=== PATIENT | male | born 1960 | race Caucasian/White ===

== ENCOUNTER → 2016-09-11 | Outpatient (CLI) | payer BC ==
[~2016-09-11] MED LIST: NO HOME MEDICATIONS; PERCOCET 5/321 UDTAB PO
== END ==
LOC: COL.RAD 07:57
DX: R79.89 Other specified abnormal findings of blood chemistry (principal); R63.0 Anorexia; K76.0 Fatty (change of) liver, not elsewhere classified

== ENCOUNTER 2020-01-20 12:57 | Inpatient (IN) | payer BC ==
[2020-01-20] VITALS (115 sets, daily range): BP systolic 132–133; BP diastolic 83–88; PULSE 94–97; TEMP 98.1–98.2; O2SAT 73–98
[~2020-01-20] VITALS: Ht 177.8 cm; Wt 60.8 kg
[~2020-01-20 12:57] MED LIST changes: +FOLIC ACID 11 MG/TA1 PO; +K-DUR20 MEQ PO; +LIBRIUM 25M25 MG/CAP PO; +NICODERM C21 MG/PATC TD; +NORVASC 5MG5 MG/TAB PO; +THIAMINE 1100 MG/TAB PO
[2020-01-20 14:03] LABS: BASO % 0.2 % (0.0-2.0); GRAN % 80.4 % (42.2-75.2); HEMOGLOBIN 13.5 g/dl (13.5-18.0); LYMPH # 0.6 (1.2-3.4); LYMPH % 5.6 % (20.0-51.0); MEAN CELL VOLUME 95 fl (80.0-100.0); MEAN CORPUSCULAR HEMOGLOBIN 35 pg (27.0-31.0); MEAN CORPUSCULAR HGB CONC 37 g/dl (33.0-37.0); MEAN PLATELET VOLUME 11.7 fl (7.4-10.4); MONO # 1.5 (0.1-0.6); PLATELET COUNT 86 K/mm3 (130-400); RED BLOOD COUNT 3.87 M/mm3 (4.20-5.60); REDCELL DISTRIBUTION WIDTH-CV 11.6 % (11.5-14.5)
[2020-01-20 14:04] LABS: HEMATOCRIT 36.6 % (42.0-52.0)
[2020-01-20 14:12] LABS: ALBUMIN 4.4 gm/dL (3.5-5.0); BILIRUBIN,TOTAL 4.1 mg/dL (0.0-1.0); CALCIUM 9.1 mg/dL (8.4-10.2); CREATININE, serum 0.47 (0.66-1.25); MAGNESIUM 1.6 mg/dL (1.6-2.3); PARTIAL THROMBOPLASTIN TIME 33.5 SECONDS (26.0-37.0); POTASSIUM 3.2 mmol/L (3.4-5.0); PROTHROMBIN TIME 10.8 SECONDS (9.7-12.8); TOTAL PROTEIN 7.8 gm/dL (6.4-8.2)
[2020-01-20 15:32] LABS: COLLECTION METHOD CLEAN CATCH
[2020-01-20 15:40] LABS: PH 7 (5-8); SQUAMOUS EPITHELIAL 0-2 /hpf; URINE APPEARANCE Clear; URINE BACTERIA None Seen /hpf; URINE BILIRUBIN Negative (NEGATIVE); URINE BLOOD Negative (NEGATIVE); URINE COLOR Yellow; URINE GLUCOSE Negative (NEGATIVE); URINE KETONE Trace (NEGATIVE); URINE LEUKOCYTE ESTERASE Negative (NEGATIVE); URINE NITRATE Negative (NEGATIVE); URINE PROTEIN(semi-quant) Negative (NEGATIVE); URINE RBC 0-2 /hpf; URINE UROBILINOGEN >=4.0 mg/dL (NEGATIVE)
[2020-01-20 21:17] LABS: CALCIUM 8.3 mg/dL (8.4-10.2); CREATININE, serum 0.4 (0.66-1.25)
[2020-01-21] VITALS (427 sets, daily range): BP systolic 76–158; BP diastolic 60–115; PULSE 84–114; TEMP 97.3–98.2; O2SAT 61–100
[2020-01-21 06:51] LABS: BASO % 0.1 % (0.0-2.0); EOS # 0.1 (0.0-0.7); EOS % 0.9 % (0-4.0); GRAN # 4.7 (1.4-6.5); GRAN % 66.6 % (42.2-75.2); LYMPH % 14.9 % (20.0-51.0); MEAN CELL VOLUME 97 fl (80.0-100.0); MEAN CORPUSCULAR HGB CONC 36 g/dl (33.0-37.0); MEAN PLATELET VOLUME 11.9 fl (7.4-10.4); MONO # 1.2 (0.1-0.6); MONO % 17.2 % (1.7-9.3); PLATELET COUNT 79 K/mm3 (130-400); RED BLOOD COUNT 3.21 M/mm3 (4.20-5.60); REDCELL DISTRIBUTION WIDTH-CV 11.7 % (11.5-14.5)
[2020-01-21 06:57] LABS: HEMATOCRIT 31.2 % (42.0-52.0); HEMOGLOBIN 11.3 g/dl (13.5-18.0); MEAN CORPUSCULAR HEMOGLOBIN 35 pg (27.0-31.0)
[2020-01-21 07:01] LABS: ALBUMIN 3.1 gm/dL (3.5-5.0); BILIRUBIN,TOTAL 2.9 mg/dL (0.0-1.0); CALCIUM 8.1 mg/dL (8.4-10.2); CREATININE, serum 0.31 (0.66-1.25); MAGNESIUM 2.4 mg/dL (1.6-2.3); TOTAL PROTEIN 5.9 gm/dL (6.4-8.2)
[2020-01-21 07:08] LABS: POTASSIUM 2.9 mmol/L (3.4-5.0)
[2020-01-22] VITALS (490 sets, daily range): BP systolic 87–146; BP diastolic 65–96; PULSE 65–100; TEMP 98–99; O2SAT 56–100
[2020-01-22 06:25] LABS: HEMOGLOBIN 10.5 g/dl (13.5-18.0); MEAN CELL VOLUME 98 fl (80.0-100.0); MEAN CORPUSCULAR HEMOGLOBIN 35 pg (27.0-31.0); MEAN CORPUSCULAR HGB CONC 35 g/dl (33.0-37.0); PLATELET COUNT 102 K/mm3 (130-400); RED BLOOD COUNT 3.03 M/mm3 (4.20-5.60); REDCELL DISTRIBUTION WIDTH-CV 11.9 % (11.5-14.5)
[2020-01-22 06:29] LABS: HEMATOCRIT 29.8 % (42.0-52.0)
[2020-01-22 06:36] LABS: ALBUMIN 2.9 gm/dL (3.5-5.0); BILIRUBIN,TOTAL 2.2 mg/dL (0.0-1.0); CALCIUM 8.4 mg/dL (8.4-10.2); CREATININE, serum 0.25 (0.66-1.25); POTASSIUM 3.9 mmol/L (3.4-5.0); TOTAL PROTEIN 5.8 gm/dL (6.4-8.2)
[2020-01-23] VITALS (1123 sets, daily range): BP systolic 105–159; BP diastolic 69–98; PULSE 61–119; TEMP 96.4–98.4; O2SAT 66–100
[2020-01-23 07:26] LABS: BASO # 0.1 (0.0-0.2); BASO % 0.7 % (0.0-2.0); EOS # 0.2 (0.0-0.7); EOS % 2.4 % (0-4.0); GRAN # 4.4 (1.4-6.5); GRAN % 59.3 % (42.2-75.2); HEMOGLOBIN 11.5 g/dl (13.5-18.0); LYMPH # 1.5 (1.2-3.4); MEAN CELL VOLUME 102 fl (80.0-100.0); MEAN CORPUSCULAR HEMOGLOBIN 35 pg (27.0-31.0); MEAN CORPUSCULAR HGB CONC 34 g/dl (33.0-37.0); MEAN PLATELET VOLUME 10.9 fl (7.4-10.4); MONO # 1.3 (0.1-0.6); MONO % 17.2 % (1.7-9.3); PLATELET COUNT 131 K/mm3 (130-400); RED BLOOD COUNT 3.33 M/mm3 (4.20-5.60)
[2020-01-23 07:27] LABS: ALBUMIN 3.1 gm/dL (3.5-5.0); BILIRUBIN,TOTAL 2.1 mg/dL (0.0-1.0); CALCIUM 8.7 mg/dL (8.4-10.2); CREATININE, serum 0.34 (0.66-1.25); MAGNESIUM 1.8 mg/dL (1.6-2.3); POTASSIUM 3.7 mmol/L (3.4-5.0); TOTAL PROTEIN 6.3 gm/dL (6.4-8.2)
[2020-01-24] VITALS (456 sets, daily range): BP systolic 146–173; BP diastolic 90–110; PULSE 78–101; TEMP 97.6–98.2; O2SAT 86–100
[2020-01-24 06:17] LABS: HEMOGLOBIN 11.6 g/dl (13.5-18.0); MEAN CELL VOLUME 101 fl (80.0-100.0); MEAN CORPUSCULAR HEMOGLOBIN 35 pg (27.0-31.0); MEAN CORPUSCULAR HGB CONC 35 g/dl (33.0-37.0); MEAN PLATELET VOLUME 10.1 fl (7.4-10.4); PLATELET COUNT 151 K/mm3 (130-400); RED BLOOD COUNT 3.33 M/mm3 (4.20-5.60); REDCELL DISTRIBUTION WIDTH-CV 12.4 % (11.5-14.5)
[2020-01-24 06:30] LABS: HEMATOCRIT 33.5 % (42.0-52.0)
[2020-01-24 06:32] LABS: ALBUMIN 3.3 gm/dL (3.5-5.0); BILIRUBIN,TOTAL 1.8 mg/dL (0.0-1.0); CALCIUM 8.7 mg/dL (8.4-10.2); CREATININE, serum 0.32 (0.66-1.25); MAGNESIUM 1.6 mg/dL (1.6-2.3); POTASSIUM 3.8 mmol/L (3.4-5.0); TOTAL PROTEIN 6.5 gm/dL (6.4-8.2)
[2020-01-24 08:07] LABS: BAND 4 % (0-10); EOSINOPHIL 1 % (0-4); LYMPHOCYTE 27 % (20.0-51.0); NEUTROPHILS 47 % (42.0-75.2); PLATELET ESTIMATE NORMAL (NORMAL)
[2020-01-25] VITALS (13 sets, daily range): BP systolic 124–181; BP diastolic 79–104; PULSE 85–114; TEMP 96.9–98.5
[2020-01-25 06:24] LABS: CALCIUM 8.8 mg/dL (8.4-10.2); CREATININE, serum 0.32 (0.66-1.25); MAGNESIUM 1.6 mg/dL (1.6-2.3); POTASSIUM 3.9 mmol/L (3.4-5.0)
[2020-01-26] VITALS (8 sets, daily range): BP systolic 125–155; BP diastolic 83–99; PULSE 82–99; TEMP 97.6–98.6
[2020-01-26 07:13] LABS: BASO % 0.7 % (0.0-2.0); EOS # 0.2 (0.0-0.7); GRAN # 2.8 (1.4-6.5); GRAN % 45.5 % (42.2-75.2); HEMOGLOBIN 11.9 g/dl (13.5-18.0); LYMPH # 1.9 (1.2-3.4); MEAN CELL VOLUME 101 fl (80.0-100.0); MEAN CORPUSCULAR HEMOGLOBIN 35 pg (27.0-31.0); MEAN CORPUSCULAR HGB CONC 34 g/dl (33.0-37.0); MEAN PLATELET VOLUME 9.4 fl (7.4-10.4); MONO # 1.2 (0.1-0.6); MONO % 19.3 % (1.7-9.3); PLATELET COUNT 204 K/mm3 (130-400); RED BLOOD COUNT 3.44 M/mm3 (4.20-5.60); REDCELL DISTRIBUTION WIDTH-CV 12.1 % (11.5-14.5)
[2020-01-26 07:15] LABS: HEMATOCRIT 34.6 % (42.0-52.0)
[2020-01-26 07:21] LABS: ALBUMIN 3.1 gm/dL (3.5-5.0); BILIRUBIN,TOTAL 1.3 mg/dL (0.0-1.0); CALCIUM 8.6 mg/dL (8.4-10.2); CREATININE, serum 0.26 (0.66-1.25); POTASSIUM 3.7 mmol/L (3.4-5.0); TOTAL PROTEIN 6.3 gm/dL (6.4-8.2)
[2020-01-26] MEDS ORDERED: NICODERM C21 MG/PATC TD (15:49)
[2020-01-26] MEDS ORDERED: NICORETTE GUM2 MG BC (15:50)
[2020-01-26] MEDS ORDERED: ZOLOFT 50MG50 MG PO (15:51)
[2020-01-26] MEDS ORDERED: NORVASC 5MG5 MG/TAB PO (15:51)
[2020-01-26] MEDS ORDERED: MAG-OX 400400 MG/TAB PO (15:51)
[2020-01-26] MEDS ORDERED: MULTI VITAMINS1 TAB PO (15:52)
[2020-01-26] MEDS ORDERED: THIAMINE 1100 MG/TAB PO (15:52)
[2020-01-26] MEDS ORDERED: FOLIC ACID 11 MG/TA1 PO (15:52)
[2020-01-26] MEDS ORDERED: K-TAB20 PO (15:52)
[2020-01-26] MEDS ORDERED: TYLENOL 325MG325 MG PO (16:01)
== END 2020-01-26 18:10 | DRG 897 ==
LOC: COL.ER 12:57 → IMCU 15:28 → MEDICAL 15:28 → ICU 01-23 18:15 → MEDICAL 01-24 15:49
PROVIDERS: Emergency Medicine; Physician Assistant; Student in an Organized Health Care Education/Training Program; ADMIT Internal Medicine
DX: F10.239 Alcohol dependence with withdrawal, unspecified (principal); E87.1 Hypo-osmolality and hyponatremia; E87.2 Acidosis; R13.10 Dysphagia, unspecified; F32.9 Major depressive disorder, single episode, unspecified; E87.6 Hypokalemia; E83.42 Hypomagnesemia; K76.0 Fatty (change of) liver, not elsewhere classified; R53.81 Other malaise; R74.0 Nonspecific elevation of levels of transaminase and lactic acid dehydrogenase [LDH]; F17.200 Nicotine dependence, unspecified, uncomplicated; F17.210 Nicotine dependence, cigarettes, uncomplicated; Y90.0 Blood alcohol level of less than 20 mg/100 ml; M25.512 Pain in left shoulder; E86.0 Dehydration; D69.6 Thrombocytopenia, unspecified; W19.XXXA Unspecified fall, initial encounter
CPT/HCPCS: 99223-AI; 99232-AI; 99233-AI; 99239; J1650; J2060; J3411; J3475; J3480; J7030; Q9967

== ENCOUNTER 2020-01-26 15:53 | Inpatient (IN) | payer BC ==
[~2020-01-26] VITALS: Ht 177.8 cm; Wt 57.7 kg
[~2020-01-26 15:53] MED LIST changes: +K-TAB20 PO; +MAG-OX 400400 MG/TAB PO; +MULTI VITAMINS1 TAB PO; +NICORETTE GUM2 MG BC; +ZOLOFT 50MG50 MG PO
[2020-01-26] MEDS ORDERED: TYLENOL 325MG325 MG PO (16:01)
[2020-01-26 18:44] VITALS: BP 154/91; PULSE 91; TEMP 97.9
--- NOTE | 2020-01-26 18:50 | NUR ---
PATIENT SLEEPING IN BED DURING CHANGE OF SHIFT REPORT FROM DAY SHIFT NURSEJODIE. BED ALARM ON.
--- NOTE | 2020-01-26 19:20 | NUR ---
OBSERVED TREMORS TO BUE WHEN AWAKE, GAIT WHEN STANDING IS SLOW,NEEDING FREQUENT CUES WITH FOOT PLACEMENT WITH MOVEMENT, GAIT IS SHAKEY WITH MOVEMENT. REPORT LEFT FOOT PAIN WITH WALKING BUT DENIES PAIN WITH SMALL STEPS TAKEN WHEN STANDING AT BED SIDE TO REPOSITION UP HIGHER IN BED WITH X1 STAFF ASSIST W/GB. PATIENT ORIENTED TO PERSON AND GENERAL PLACE BUT DOES NOT KNOW WHY HE IS HERE BUT UNDERSTANDS HE IS ON REHAB UNIT FOR IMPROVED WALKING. OBSERVED ANGIE GIFT OFFICER WEAK BUT EVEN, ANSWERS QUESTIONS APPROPRIATELY WITH SPEECH RASPY AND OBSERVED INTERMITTENT MOIST COUGHING THAT IS NONPRODUCTIVE CURRENTLY, REPORTED HAS HAD SOME PHLEGM EXPECTORATED BEFORE. DENIES PAIN WHILE LAYING IN BED. BED ALARM ON.
[2020-01-27 04:20] VITALS: BP 157/92; PULSE 89; TEMP 98.6
--- NOTE | 2020-01-27 07:37 | NUR ---
PATIENT PUT UP IN CHAIR DURING CHANGE OF SHIFT REPORT GIVEN TO DAY SHIFT NURSEKESHIA. CHAIR ALARM ON.
--- NOTE | 2020-01-27 10:48 | NUR ---
Patient is impulsive so call light is always in reach and alarms are set at all times. Patient currently resting in bed at this time. Denies pain this morning. He was a one max assist with transferring this morning from chair to to bed. He was a 2 max assist with walking to the toilet using walker and gaitbelt. Patient was able to drink nectar thick liquids holding the cup himself, but takes pills crushed this morning with applesauce. Will continue to monitor.
--- NOTE | 2020-01-27 14:06 | NUR ---
Patient resting in bed at this time, call light in reach and bed alarm is set. He does not use the call light appropriatly, but alarms are set at all times. Patient had a incontinent stool this afternoon. Patient denies any needs at this time. Will continue to monitor.
--- NOTE | 2020-01-27 14:20 | NUR ---
Commanding Officer Motorized Squad met with patient to complete initial intake as patient is new to [facility]. Patient lives in [place] and his recently. Patient has a daughter, Frida (ph#[phone]) who is patient's legal next of kin. Patient's primary care physician is Dr. Rollins and patient obtains medications at [facility]. Patient does not currently have any DME at home and reports independence with ADLS prior to admit. Patient does not have DPOA but is interested in designating his daughter, Frida. Patient will work with Speech Therapy this afternoon and SW will follow up on obtaining patient signature. SW contacted patient's daughter, Frida who advised she is going to contact patient's workers compensation attorney to set up financial power of workers compensation attorney so she can assist patient with his finances. Frida reports that patient's siblings and one of her aunts on her moms side are also involved. SW will continue to follow.
[2020-01-27 17:13] VITALS: BP 121/78; PULSE 86; TEMP 98.2
--- NOTE | 2020-01-27 19:45 | NUR ---
PATIENT INITIALLY UP IN CHAIR THEN PUT TO BED DURING CHANGE OF SHIFT REPORT FROM DAY SHIFT NURSE, KESHIA. OBSERVED PATIENT SETTING OFF CHAIR ALARM DURING REPORT, WANTING TO GO TO BED, UP TO BATHROOM, PASSED LOOSE FORMED STOOL. BED ALARM ON WHEN BACK IN BED.
--- NOTE | 2020-01-27 20:00 | NUR ---
PATIENT WITH GENERALIZED WEAKNESS TO EXTREMITIES, OBSERVED TREMORS TO EXTREMITIES WITH MOVEMENT AND PATIENT AWAKE. PATIENT SLOW TO FOLLOW COMMANDS, REQUIRES FREQUENT CUES WITH FOOT PLACEMENT DURING PIVOT TRANSFERS. BED ALARM ON WHILE IN BED.
--- NOTE | 2020-01-28 02:34 | NUR ---
PATIENT SLEEPING, DOES NOT AWAKEN WHEN ROOM ENTERED BY STAFF AT THIS TIME. BREATHING OBSERVED EVEN AND NONLABORED. BED ALARM ON.
[2020-01-28 05:33] VITALS: BP 133/86; PULSE 82; TEMP 97.2
--- NOTE | 2020-01-28 07:06 | NUR ---
PATIENT SLEEPING IN BED DURING CHANGE OF SHIFT REPORT GIVEN TO DAY SHIFT NURSEKESHIA. BED ALARM ON.
--- NOTE | 2020-01-28 11:34 | NUR ---
Patient attending therapies this morning. Denies pain. Takes pills with applesauce followed by sips of thin liquids. Needed to crush some of his pills due to him not being able to swallow with out chewing them up. ST was updated on this.
--- NOTE | 2020-01-28 11:58 | NUR ---
Gave report to BARBARA Neri.
--- NOTE | 2020-01-28 16:21 | NUR ---
Director Of Counseling followed up with ST who advised patient should be able to sign DPOA documents. SW followed up with patient who verbalized understanding of what he is to sign and states clearly that he wants to designate his daughter Frida as first agent and Tahira Garcia as alternate agent. ROSA obtained contact information for Tahira from Frida. ROSA and ROSA Adam provided witness signature on form. ROSA provided original and copies to patient then placed a copy on patient's chart. ROSA contacted Frida who inquired about discharge recommendations. ROSA advised she will follow up with Frida following team conference to discuss recommendations. SW to continue to follow.
[2020-01-28 18:00] VITALS: BP 144/88; PULSE 90; TEMP 98.1
--- NOTE | 2020-01-28 19:16 | NUR ---
REPORT TO ANUEL RN.
--- NOTE | 2020-01-28 21:00 | NUR ---
PT UP IN CHAIR AT BEDSIDE. IS ALERT, ORIENTED X3. HAS BILATERAL ARM/HAND TREMORS. ASSISTED TO BATHROOM, GAIT SLIGHTLY UNSTEADY, HAS WALKER AND GAIT BELT USED FOR ASSIST. DENIES PAIN. ASSISTED TO BED. BED ALARM ON.
--- NOTE | 2020-01-28 23:00 | NUR ---
Pt up to bathroom with assist, impulsive and was attempting to get up on own. Back to bed with assist. Bed alarm on.
--- NOTE | 2020-01-29 04:00 | NUR ---
Bed alarm ringing, pt assisted to bathroom and back to bed. Gait slightly unsteady. Bed alarm on.
[2020-01-29 06:10] VITALS: BP 110/76; PULSE 81; TEMP 98.1
--- NOTE | 2020-01-29 08:45 | NUR ---
PATIENT DROWSY AND RESTING IN BED WITH EYES CLOSED. PATIENT AROUSES EASILY TO NAME. PATIENT IS ALERT AND ORIENTED. PATIENT IS ABLE TO STATE NAME, , YEAR, PRESIDENT AND LOCATION. PATIENT HESITATED WHEN ANSWERING WHAT YEAR IT IS, BUT ANSWERED CORRECTLY. VSS. BOWEL SOUNDS ACTIVE ALL FOUR QUADRANTS. PATIENT TOLERATING DIET WITHOUT COMPLAINTS OF N/V. PATIENT DENIES PAIN AT THIS TIME. POSITIVE PEDAL PULSES EQUAL BILATERALLY. PATIENT TOOK AM MEDICATIONS CRUSHED IN APPLESAUCE WITHOUT ANY DIFFICULTIES. CALL [facility] WITHIN REACH. BED ALARM ON. NO NEEDS AT THIS TIME.
[2020-01-29 17:26] VITALS: BP 146/90; PULSE 89; TEMP 97.8
--- NOTE | 2020-01-29 18:57 | NUR ---
REPORT GIVEN TO BARBARA AGEE.
--- NOTE | 2020-01-29 20:00 | NUR ---
PT IN BED. DENIES NEEDS. ASSISTED TO BATHROOM, GAIT SLIGHTLY UNSTEADY. BACK TO BED. BED ALARM ON.
--- NOTE | 2020-01-30 03:29 | NUR ---
Assisted to bathroom, forgets to use call light and sets off bed alarm. Voids and back to bed. Has NPC, smoker history.
[2020-01-30 06:16] VITALS: BP 136/86; PULSE 85; TEMP 98.4
[2020-01-30 17:37] VITALS: BP 146/79; PULSE 96; TEMP 97.9
--- NOTE | 2020-01-30 19:00 | NUR ---
PATIENT IMPULSIVE THROUGHOUT THE SHIFT. PATIENT EDUCATED ON UTILIZING THE CALL LIGHT, BED ALARMS AND PATIENT SAFETY. PATIENT WOULD ULTIZIE CALL LIGHT OFF AND ON DURING THE SHIFT. PATIENT NEEDS CUEING TO STAY WITHIN WALKER WHEN AMBULATING. NO PAIN THROUGHOUT THE SHIFT. PATIENT STATES THAT HE IS REALLY READY TO GO HOME AND STOP USING THE WALKER.
--- NOTE | 2020-01-30 19:03 | NUR ---
REPORT GIVEN TO BARBARA AGEE.
--- NOTE | 2020-01-30 20:30 | NUR ---
PT USES CALL LIGHT, ASKS TO GO TO BATHROOM. ASSISTED WITH ONE AND WALKER, DOES WELL. TO BED AFTER VOIDING. IS ORIENTED X3, COOPERATIVE WITH STAFF. DENIES NEEDS AT THIS TIME. BED ALARM ON.
[2020-01-31 06:19] VITALS: BP 142/87; PULSE 81; TEMP 97.8
[2020-01-31 06:52] LABS: BASO # 0.1 (0.0-0.2); BASO % 0.8 % (0.0-2.0); EOS # 0.1 (0.0-0.7); EOS % 1.7 % (0-4.0); GRAN # 4.3 (1.4-6.5); GRAN % 58.5 % (42.2-75.2); HEMOGLOBIN 11.8 g/dl (13.5-18.0); LYMPH # 1.9 (1.2-3.4); LYMPH % 25.8 % (20.0-51.0); MEAN CELL VOLUME 102 fl (80.0-100.0); MEAN CORPUSCULAR HEMOGLOBIN 34 pg (27.0-31.0); MEAN CORPUSCULAR HGB CONC 34 g/dl (33.0-37.0); MONO # 0.9 (0.1-0.6); MONO % 12.9 % (1.7-9.3); PLATELET COUNT 375 K/mm3 (130-400); RED BLOOD COUNT 3.44 M/mm3 (4.20-5.60); REDCELL DISTRIBUTION WIDTH-CV 12.2 % (11.5-14.5)
[2020-01-31 06:55] LABS: HEMATOCRIT 34.9 % (42.0-52.0)
[2020-01-31 07:17] LABS: ALBUMIN 3.5 gm/dL (3.5-5.0); BILIRUBIN,TOTAL 0.8 mg/dL (0.0-1.0); CALCIUM 9.1 mg/dL (8.4-10.2); CREATININE, serum 0.34 (0.66-1.25); MAGNESIUM 1.9 mg/dL (1.6-2.3); POTASSIUM 3.8 mmol/L (3.4-5.0); TOTAL PROTEIN 6.9 gm/dL (6.4-8.2)
--- NOTE | 2020-01-31 16:00 | NUR ---
Cut Off Saw Tender Metal scheduled family meeting for tomorrow (02/01/20) @1300. Frida will participate by phone. SW met with patient who is agreeable to this time. ROSA collaborated with UMESH Vaz Director who advised patient is considering outpatient vs inpatient treatment for alcohol abuse. ROSA will continue to follow up.
--- NOTE | 2020-01-31 17:23 | NUR ---
Patient resting in bed at this time. Patient remains alert and oriented, answers questions appropriately. Patient got up before calling for help once today, reminded him to call first. Therapy later made him independent in his room. Patient has been able to get up, ambulate steadily, and transfer without assistance, did not require help or cues. Patient has not complained of pain or needs, call light within reach.
[2020-01-31 18:01] VITALS: BP 147/84; PULSE 85; TEMP 99
--- NOTE | 2020-01-31 19:27 | NUR ---
PATIENT UP INDEPENDENTLY IN ROOM DURING CHANGE OF SHIFT REPORT FROM DAY SHIFT NURSECHARITY. UP IN ROOM WITH NO PROBLEMS CURRENTLY. AGREED TO LET STAFF BE AWARE WHEN HE IS UP IN THE MIDDLE OF THE NIGHT FOR SAFETY PRECAUTIONS DURING THE NIGHT. HAS MOIST COUGH THAT IS RARELY PRODUCTIVE AT TIMES. DENIES ANY NEEDS CURRENTLY.
--- NOTE | 2020-02-01 00:17 | NUR ---
PATIENT SLEEPING, DOES NOT AWAKEN WHEN ROOM ENTERED BY STAFF. OBSERVED BREATHING NONLABORED AND EVEN. UP INDEPENDENTLY IN ROOM WITH NO PROBLEMS.
--- NOTE | 2020-02-01 02:45 | NUR ---
PATIENT SLEEPING, DOES NOT AWAKEN WHEN DOOR TO ROOM IS OPENED BY STAFF. OBSERVED BREATHING NONLABORED AND EVEN. PATIENT UP INDEPENDENTLY IN ROOM.
[2020-02-01 05:07] VITALS: BP 109/64; PULSE 73; TEMP 98.7
--- NOTE | 2020-02-01 07:18 | NUR ---
PATIENT RESTING IN BED DURING CHANGE OF SHIFT REPORT GIVEN TO DAY SHIFT NURSEKESHIA. PATIENT UP INDEPENDENTLY IN ROOM WITH NO PROBLEMS REPORTED OR OBSERVED.
[2020-02-01 09:22] VITALS: BP 130/76
--- NOTE | 2020-02-01 09:38 | NUR ---
Patient is independent in room and is steady on his feet. He uses the call light appropriatly. Tolerated breakfast well this am.
--- NOTE | 2020-02-01 10:49 | NUR ---
Patient unable to swallow pills whole, so meds were crushed and he ate with applesauce.
--- NOTE | 2020-02-01 15:50 | NUR ---
Forestry Adviser participated in family meeting which included IPR Director Татьяна and PT/OT/ST. Patient's daughter, Frida participated by phone. Татьяна opened the meeting by explaining it's purpose then PT/OT/ST reviewed patient's progress and discharge needs. Patient may benefit from a shower bench or chair and Frida advised they already have one. Upon discharge, the team is recommending outpatient physical therapy. Frida expressed interest in some private duty services through [facility]. Patient advised that his brother will likely come stay with him upon discharge for a brief time. ORSA followed up [facility] patient following meeting and provided information and contact for [facility]. Patient advised that he has used them in the past to assist in caring for his late . Patient is agreeable to outpatient Physical Therapy and would like to get set up at [facility]. ROSA made appointment for 02/08/20 @ 0199. ROSA provided appointment to BARBARA Mahajan. ROSA followed up with patient about inpatient vs outpatient drug and alcohol resources. Patient states he wants to get home and do one thing at a time. Patient is interested in AA meetings. ROSA provided list of local meetings. ROSA also provided information about outpatient alcohol counseling. Patient advised he does not want to schedule him anything at this time. ROSA followed up with Frida who advised patient is hesitant to set up any counseling but she feels he would benefit from both grief and alcohol counseling. ROSA provided Frida information about [facility] and [facility], both outpatient therapy providers. ROSA will continue to follow.
[2020-02-01 16:14] VITALS: BP 123/73; PULSE 98; TEMP 97.7
--- NOTE | 2020-02-01 19:55 | NUR ---
PATIENT RESTING IN BED DURING CHANGE OF SHIFT REPORT FROM DAY SHIFT NURSEKESHIA. PATIENT UP INDEPENDENTLY WITH NO CONCERNS OR PROBLEMS.
--- NOTE | 2020-02-01 19:56 | NUR ---
GAVE REPORT TO NIGHT NURSE.
--- NOTE | 2020-02-01 20:00 | NUR ---
PATIENT UP INDEPENDENTLY IN ROOM DURING CHANGE OF SHIFT REPORT FROM DAY SHIFT NURSEKESHIA. PLANNING ON DISMISSAL FOR TOMORROW FROM [facility]. HAD NO CONCERNS OR C/O DURING SHIFT REPORT.
--- NOTE | 2020-02-01 21:38 | NUR ---
GIVEN 120 ML GRAPE JUICE TO TAKE WITH HS MEDS. NO OTHER NEEDS REPORTED.
[2020-02-02 04:18] VITALS: BP 125/79; PULSE 80; TEMP 97.9
--- NOTE | 2020-02-02 07:31 | NUR ---
Admission QIM scores were reviewed by the team. Code of 3 chosen for toileting hygiene was determined by team discussion to be the most usual performance before interventions for this patient during the assessment period. Code of 3 chosen for rolling left to right was determined by team discussion to be the most usual performance for this patient during the assessment period. Code of 4 chosen for sit to lying was determined by team discussion to be the most usual performance for this patient during the assessment period. Code of 3 chosen for sit to stand was determined by team discussion to be the most usual performance for this patient during the assessment period. Code of 3 chosen for chair/bed to chair transfers was determined by team discussion to be the most usual performance for this patient during the assessment period.--Татьяна Hightower, PD
--- NOTE | 2020-02-02 07:36 | NUR ---
PATIENT UP INDEPENDENTLY IN ROOM DURING CHANGE OF SHIFT REPORT GIVEN TO DAY SHIFT NURSE, KESHIA. PATIENT TO BE DISMISSED TODAY TO DAUGHTER'S HOME.
[2020-02-02] MEDS ORDERED: MIRTAZAPINE7.5 MG PO (07:43)
--- NOTE | 2020-02-02 07:43 | NUR ---
PATIENT SLEEPING, DOES NOT AWAKEN WHEN DOOR TO ROOM IS OPENED BY STAFF. OBSERVED BREATHING NONLABORED AND EVEN. PATIENT UP INDEPENDENTLY IN ROOM WHEN AWAKE WITH NO PROBLEMS OR CONCERNS.
--- NOTE | 2020-02-02 10:42 | NUR ---
Money Counter met with patient to check in prior to discharge today. SW again spoke with patient about setting up an appointment for outpatient alcohol counseling or even grief counseling. Patient declined and advised he will talk with his brother about this upon discharge. ROSA advised patient that even after discharge, he can reach out to SW for assistance with setting up appointment. Patient verbalized understanding. ROSA faxed orders to [facility] [address] for outpatient PT. No additional needs at this time.
--- NOTE | 2020-02-02 10:52 | NUR ---
Patient resting awaiting discharge later today. Discussed discharge planning with patient. Denies pain.
--- NOTE | 2020-02-02 11:11 | NUR ---
Call placed to [facility] to have them set aside a pill trouble lineman for patient to poultry picker after discharge.
--- NOTE | 2020-02-02 14:04 | NUR ---
Patient Health Summary, Discharge Summary, and Home meds printed and reviewed with patient. Stressed importance of follow up appointments. Called prescription for Norvasc in to pharmacy of choice. Belongings gathered by BARBARA/Lita including jeans, belt, sweatshirt, hat, shoes, trifold wallet w/cards, money, stretch band, yellow face, clothes from laundry hamper, and flip cell phone. Patient transported via wheelchair by BARBARA/Lita and seatbelted for ride home with daughter and brother. Patient and family denied questions.
--- NOTE | 2020-02-02 20:40 | NUR ---
Patient left some personal items and this nurse called daughter to come machine pecan picker. She will be coming by tomorrow and will call when she will be down at the ER.
== END 2020-02-02 12:30 | disposition home or self-care (01) | DRG 948 ==
PROVIDERS: ADMIT Internal Medicine
DX: R53.81 Other malaise (principal); G72.1 Alcoholic myopathy; E87.1 Hypo-osmolality and hyponatremia; E87.2 Acidosis; F10.239 Alcohol dependence with withdrawal, unspecified; R13.10 Dysphagia, unspecified; K76.0 Fatty (change of) liver, not elsewhere classified; E83.42 Hypomagnesemia; E87.6 Hypokalemia; D64.9 Anemia, unspecified; M25.519 Pain in unspecified shoulder; F32.9 Major depressive disorder, single episode, unspecified; F41.9 Anxiety disorder, unspecified; X58.XXXD Exposure to other specified factors, subsequent encounter; R74.0 Nonspecific elevation of levels of transaminase and lactic acid dehydrogenase [LDH]; F17.210 Nicotine dependence, cigarettes, uncomplicated; Z79.1 Long term (current) use of non-steroidal anti-inflammatories (NSAID)
CPT/HCPCS: 99222-AI; 99232-AI; 99239; A9284; J1650

== ENCOUNTER 2020-03-20 13:00 | Outpatient (RCR) | payer BC ==
[~2020-03-20 13:00] MED LIST changes: +MIRTAZAPINE7.5 MG PO; +TYLENOL 325MG325 MG PO
== END 2020-03-20 17:09 | disposition home or self-care (01) ==
LOC: WSPT 13:00
DX: G72.1 Alcoholic myopathy (principal); F10.10 Alcohol abuse, uncomplicated

== ENCOUNTER 2020-11-29 09:52 | Inpatient (IN) | payer BC ==
[~2020-11-29] VITALS: Ht 175.3 cm; Wt 68.2 kg
[2020-11-29] VITALS (47 sets, daily range): BP systolic 166; BP diastolic 108; PULSE 99; TEMP 99.2; O2SAT 78–98
[2020-11-29 10:36] LABS: BASO % 0.1 % (0.0-2.0); EOS % 0.1 % (0-4.0); GRAN # 11.7 (1.4-6.5); GRAN % 87.6 % (42.2-75.2); HEMATOCRIT 36.9 % (42.0-52.0); HEMOGLOBIN 13.2 g/dl (13.5-18.0); LYMPH # 0.5 (1.2-3.4); LYMPH % 3.7 % (20.0-51.0); MEAN CELL VOLUME 96 fl (80.0-100.0); MEAN CORPUSCULAR HEMOGLOBIN 34 pg (27.0-31.0); MEAN CORPUSCULAR HGB CONC 36 g/dl (33.0-37.0); MEAN PLATELET VOLUME 10.5 fl (7.4-10.4); MONO # 1.1 (0.1-0.6); PLATELET COUNT 104 K/mm3 (130-400); RED BLOOD COUNT 3.85 M/mm3 (4.20-5.60); REDCELL DISTRIBUTION WIDTH-CV 11.9 % (11.5-14.5)
[2020-11-29 10:42] LABS: INR 1.1 (0.8-3.0); PROTHROMBIN TIME 12.1 SECONDS (9.7-12.8)
[2020-11-29 10:49] LABS: ALBUMIN 4.3 gm/dL (3.5-5.0); BILIRUBIN,TOTAL 3.6 mg/dL (0.0-1.0); CALCIUM 8.5 mg/dL (8.4-10.2); CREATININE, serum 0.63 (0.66-1.25); MAGNESIUM 1.8 mg/dL (1.6-2.3); POTASSIUM 3.7 mmol/L (3.4-5.0)
[2020-11-29] MEDS ORDERED: REMERON 15M15 MG/TA1 PO (11:28)
[2020-11-29] MEDS ORDERED: NATURE'S BLEND100 M2 PO (11:28)
[2020-11-29] MEDS ORDERED: LEXAPRO20 MG PO (11:29)
[2020-11-29] MEDS ORDERED: VITAMIN B12 781 TAB PO (11:31)
--- NOTE | 2020-11-29 19:21 | NUR ---
REPORT GIVEN TO BARBARA ALEMAN. CARE RELINQUISHED AT THIS TIME.
[2020-11-29 21:47] LABS: CALCIUM 8.3 mg/dL (8.4-10.2); CREATININE, serum 0.45 (0.66-1.25); POTASSIUM 3.2 mmol/L (3.4-5.0)
--- NOTE | 2020-11-29 23:16 | NUR ---
During shift change we put on a condom catheter on the patient. He has been picking at his IV, trying to roll out of bed and tried removing the catheter. His blood pressure has been a high (189/100) so I gave one dose of hydrolazine. He has responded well and current blood pressure is 156/105. I give him ativan every two hours and he is talking to himself and pointing at the ceiling and saying "Give me back my money". His potassium is 3.2 and I am covering it with 60 mEq. IV fluids is still running at 150 ml/hr.
[2020-11-30] VITALS (299 sets, daily range): BP systolic 123–145; BP diastolic 72–104; PULSE 86–112; TEMP 97.6–98.8; O2SAT 75–100
[2020-11-30 05:53] LABS: COLLECTION METHOD CLEAN CATCH
[2020-11-30 05:58] LABS: BASO % 0.4 % (0.0-2.0); EOS % 0.4 % (0-4.0); GRAN # 6.3 (1.4-6.5); GRAN % 74.9 % (42.2-75.2); LYMPH # 1.2 (1.2-3.4); LYMPH % 14.1 % (20.0-51.0); MEAN CORPUSCULAR HGB CONC 34 g/dl (33.0-37.0); MEAN PLATELET VOLUME 10.8 fl (7.4-10.4); MONO # 0.8 (0.1-0.6); MONO % 9.8 % (1.7-9.3); PLATELET COUNT 79 K/mm3 (130-400); RED BLOOD COUNT 2.69 M/mm3 (4.20-5.60); REDCELL DISTRIBUTION WIDTH-CV 12.4 % (11.5-14.5)
[2020-11-30 06:00] LABS: MUCOUS Present /lpf; PH 7 (5-8); SQUAMOUS EPITHELIAL None Seen /hpf; URINE APPEARANCE Clear; URINE BACTERIA None Seen /hpf; URINE BILIRUBIN Negative (NEGATIVE); URINE BLOOD Negative (NEGATIVE); URINE COLOR Yellow; URINE GLUCOSE Negative (NEGATIVE); URINE KETONE Trace (NEGATIVE); URINE LEUKOCYTE ESTERASE Negative (NEGATIVE); URINE NITRATE Negative (NEGATIVE); URINE PROTEIN(semi-quant) Negative (NEGATIVE); URINE RBC None Seen /hpf
[2020-11-30 06:09] LABS: ALBUMIN 2.9 gm/dL (3.5-5.0); BILIRUBIN,TOTAL 2.6 mg/dL (0.0-1.0); CALCIUM 7.8 mg/dL (8.4-10.2); CREATININE, serum 0.36 (0.66-1.25); MAGNESIUM 2.1 mg/dL (1.6-2.3); POTASSIUM 3.7 mmol/L (3.4-5.0); TOTAL PROTEIN 5.7 gm/dL (6.4-8.2)
[2020-11-30 06:10] LABS: HEMATOCRIT 27.5 % (42.0-52.0); HEMOGLOBIN 9.4 g/dl (13.5-18.0); MEAN CELL VOLUME 102 fl (80.0-100.0); MEAN CORPUSCULAR HEMOGLOBIN 35 pg (27.0-31.0)
--- NOTE | 2020-11-30 06:53 | NUR ---
Patient was restless and agitated throughout the night. He attempted to pull off his condom catheter, IV lines and tried rolling off the bed. I gave ativan a few times and he settled down. His Potassium this morning was 3.7 and I put in the order for 40 mEq. The first bag is running. He is resting but easily arousable. Sometimes he responds appropriately. He denies pain and his vitals are stable.
[2020-11-30 10:01] LABS: TRICYCLIC ANTIDEPRESS URINE NEGATIVE
--- NOTE | 2020-11-30 13:00 | NUR ---
PATIENT TRANSFERED FROM ICU INTO ROOM 354 ON DETOX PROTOCOL. PATIENT HAS HX OF ETOH, SMOKING AND FALLS. NOTED BRUISING AND SKIN TEARS TO BUE & BLE AT DIFFERENT STAGES OF HEALING. PATIENT IS VERY DROWSY AND SLEEPING AT THIS TIME. PATIENT RECEIVING ATIVAN OFF OF THE DETOX PROTOCOL. PT/OT/ST CONSULTED. [facility] AND NECTAR THICK LIQUIDS. IV FLUIDS INFUSING VIA PUMP INTO LEFT HAND. RIGHT FORARM IV TO INT. HIGH FALL RISK. HEAD TO TOE ASSESSMENT COMPLETE. BED ALARM ON. CALL LIGHT IN REACH.
--- NOTE | 2020-11-30 13:00 | NUR ---
REPORT GIVEN TO DEMETRIO JIMENEZ. ALL QUESTIONS ANSWERED. PT TRANSFERED TO MEDICAL BED AND PT WHEELED TO ROOM 354. ALL BELONGINGS TAKEN WITH PT. BEDALARM ACTIVE, CALL LIGHT GIVEN TO PT. DEMETRIO JIMENEZ NOTIFIED OF ARRIVAL.
--- NOTE | 2020-11-30 15:00 | NUR ---
PATIENT SLEEPING SOUNDLY WITH NO NEEDS. CALL LIGHT IN REACH. BED ALARM ON.
--- NOTE | 2020-11-30 15:04 | NUR ---
back shoe worker spoke with patient's daughter and durable power of prosecuting attorney for health care, Frida [phone] to complete intake assessment. Patient is hard to arouse and is having some confusion. A copy of the durable power of prosecuting attorney was placed on the chart and Frida arranged for patient's living will to be faxed to ICU. Frida states that patient lives alone and has [facility] twice weekly to help with chores, errand, and for companionship. Worker provided information on home health for medication education and physical therapy home safety evaluation. Worker provided information on inpatient, outpatient, and detox alcohol treatment options. Worker and patient discussed that the above services will be given to patient and that patient has to be agreeable to take these services. Patient's spouse and Frida's mother in the Spring. Frida stated that patient has been an alcoholic for many years and that he was in rehab treatment when she was young. Worker and Frida discussed the importance of her own mental health therapy at this time and in what ways she can help patient. Patient's primary care provider is Dr Rollins and she prescribes medications for patient's depression. Patient has not attended his last visit to see Dr Rollins and Frdia stated patient is not taking his medications appropirately and has had an increased number of falls at home. Patient has [employer] and is retired from the [employer]. Case Management will meet with patient on 12/01/2020 to discuss treatment and home health services.
--- NOTE | 2020-11-30 22:52 | NUR ---
2130- ALERT AND OX3. WAKING UP THIS EVENING STARTING TO HAVE TREMORS AND HALLCUINATIONS. WAS ABLE TO DRINK SOME GATORADE WATER AND EAT 50% OF DINNER. ENTIRE BED CHANGED, GOWN. MULTIPLE BRUISING ALL OVER BODY. OPEN SORES TO ELBOWS, BANDAGES REPLACED. CLEANED UP REPOSTIONED W PILLOWS. REORIENTATED OFTEN. IV FLUIDS TO LEFT HAND. RTFA SALINE LOCKED. EXTERNAL CATH REMOVED BY PT. BREIF PLACED, WILL CHECK AND CHANGE. PT SISTERINLAW CALLS FOR UPDATE. DETOX SCORING, ATIVAN 1MG GIVEN. BED IN LOW POSITION, BED ALARM ON.
[2020-12-01] VITALS (10 sets, daily range): BP systolic 122–183; BP diastolic 73–99; PULSE 86–107; TEMP 97.5–98.8
--- NOTE | 2020-12-01 02:05 | NUR ---
RESTLESS AND AGITATED PULLING AT LINES, ATTEMPTING TO GET UP SWINGING LEGS OVER THE BED.
--- NOTE | 2020-12-01 05:05 | NUR ---
ATIVAN GIVEN PER CIWA SCORING. VITALS OBTAINED, CLEANED UP. BREIF CHANGED AND WARM BLANKET PROVIDED. REPOSITIONED IN MED. BED ALARM,LOW POSITOIN. SINUS TACH ON MONITOR. LEAD CHECKED.
[2020-12-01 06:39] LABS: BASO % 0.5 % (0.0-2.0); EOS # 0.1 (0.0-0.7); EOS % 1.5 % (0-4.0); GRAN # 5.1 (1.4-6.5); GRAN % 69.2 % (42.2-75.2); LYMPH # 1.2 (1.2-3.4); LYMPH % 15.9 % (20.0-51.0); MEAN CELL VOLUME 104 fl (80.0-100.0); MEAN CORPUSCULAR HGB CONC 33 g/dl (33.0-37.0); MEAN PLATELET VOLUME 11.3 fl (7.4-10.4); MONO # 0.9 (0.1-0.6); MONO % 12.4 % (1.7-9.3); PLATELET COUNT 84 K/mm3 (130-400); RED BLOOD COUNT 2.84 M/mm3 (4.20-5.60); REDCELL DISTRIBUTION WIDTH-CV 12.2 % (11.5-14.5)
[2020-12-01 06:45] LABS: HEMATOCRIT 29.6 % (42.0-52.0); HEMOGLOBIN 9.9 g/dl (13.5-18.0); MEAN CORPUSCULAR HEMOGLOBIN 35 pg (27.0-31.0)
[2020-12-01 06:57] LABS: ALBUMIN 3.2 gm/dL (3.5-5.0); BILIRUBIN,TOTAL 3.4 mg/dL (0.0-1.0); CALCIUM 8.4 mg/dL (8.4-10.2); CREATININE, serum 0.32 (0.66-1.25); MAGNESIUM 1.9 mg/dL (1.6-2.3); POTASSIUM 3.4 mmol/L (3.4-5.0); TOTAL PROTEIN 6.3 gm/dL (6.4-8.2)
--- NOTE | 2020-12-01 07:00 | NUR ---
Report received from BARBARA Whitney. PT resting in bed, awake upon entry, difficult to understand speech as it is a whisper but pt able to communicate somewhat. Will continue to monitor.
--- NOTE | 2020-12-01 08:30 | NUR ---
Student nurse requesting assistance. PT took a few sips of juice with meds and coughed a lot. Sitting upright in bed, Yanker suction utilized but no real discharge from suction. PT breathing well, 02 saturations fine. FOr now, called ST and recommended we do not give anything PO until we can have ST reevaluate for safety. Katherine called for update and encouraged her to visit. IVF to [facility]. PT has copoius bruising all over body especially all over upper back, healing bruised. Open areas from scabs on elbos, legs, ankles and shoulders. PT not oriented to date but oriented to self, bed alarms on and will continue to monitor.
--- NOTE | 2020-12-01 08:49 | NUR ---
Patient is expirencing coughing with small sips of water and orange juice. Patient states that he is occasionally nauseas. He is resting in bed with head of bed elevated.
--- NOTE | 2020-12-01 10:54 | NUR ---
Medicinal Chemist attended clinical rounds with the team. PT/OT/ST ordered. Psych will be consulted for the patient.
--- NOTE | 2020-12-01 14:08 | NUR ---
Primary nurse was assisted with [id number] patient care by [employer] student Jason Cook and [employer] instructor Annie Gan MSN, RN.
--- NOTE | 2020-12-01 15:00 | NUR ---
PT/OT recommending post acute rehab. Potato Loader contacted the patient's daughterTyrell to discuss the recommendation. The first choice is [facility] and second choice is [facility] in [place]. Referrals sent. Discharge disposition at this time: Post acute rehab, Referreals sent to [facility] and [facility]. Awaiting screens.
--- NOTE | 2020-12-01 18:13 | NUR ---
Pt has rested off and on all of shift, c/o pain to back, profuse ecchymosis in various stages of healing on back. Pt has been incontinetn of urine, appears to be hallucinating and has been smoking an imaginary cigarette several times today. PT states he "just got back from the store". Tolerating nectar thick and pureed diet well, STATISTICAL METHODS PROFESSOR fed pt supper and he tolerated well. Bed alarm on, pt did not set off the bed alarm over shift, daughter visited this afternoon and discussed plan of care. Will give bedside shift reprot to nightshift nurse who will resume care.
--- NOTE | 2020-12-01 23:35 | NUR ---
2030- ATTEMPTING TO CRAWL OUT OF BED W FEET HANGING OVER THE SIDE. PUT BACK IN BED. ALERT AND OX2. CIWA SCORING DONE. PT CONT TO HAVE TREMOR, HALLCINATIONS. OCC WILL BE DIAPHRETIC THIS EVENING. BRIEF CHANGED HAS LARGE SOFT BM. DRINKING THICKENED FLUIDS W HELP. ATIVAN GIVEN PER ORDER. IV FLUIDS RUNNING. SISTER SRIKANTH CALLS FOR UPDATE. NEEDS MET. ALARMS ON.
[2020-12-02] VITALS (9 sets, daily range): BP systolic 129–158; BP diastolic 82–95; PULSE 83–107; TEMP 97.5–98.9
--- NOTE | 2020-12-02 06:28 | NUR ---
PT NOTED TO HAVE BLOOD ON SIDE OF RT LEG CALF AREA, OPEN SORE QUARTER IN SIZE. COVERED WITH PADDED BANDAGE. BARRIER CREAM TO BUTTOCK AND SCROTUM WHICH IS REDENED. ATIVAN PER PROTOCOL OVERNIGHT CONTINUES TO HAVE HALLUCINATIONS AND TREMORS.
--- NOTE | 2020-12-02 06:45 | NUR ---
PT IS CURRENTLY SLEEPING IN BED AT THIS TIME. CIWA PER BULB BRANDER RN WAS 8, MEDICATION WAS ADMINISTERED. WILL REASSESS AT 8AM. MALI STUDENT RN WILL BE ASSISTING TODAY WITH PATIENT CARE. NO FURTHER CONCERNS AT THIS TIME. CALL LIGHT WITHIN REACH.
[2020-12-02 07:01] LABS: BASO % 0.6 % (0.0-2.0); EOS # 0.2 (0.0-0.7); EOS % 2.5 % (0-4.0); LYMPH # 1.4 (1.2-3.4); LYMPH % 20.9 % (20.0-51.0); MEAN CELL VOLUME 104 fl (80.0-100.0); MEAN CORPUSCULAR HGB CONC 33 g/dl (33.0-37.0); MEAN PLATELET VOLUME 10.3 fl (7.4-10.4); MONO # 1.2 (0.1-0.6); MONO % 17.3 % (1.7-9.3); PLATELET COUNT 123 K/mm3 (130-400); RED BLOOD COUNT 2.85 M/mm3 (4.20-5.60); REDCELL DISTRIBUTION WIDTH-CV 12.2 % (11.5-14.5)
[2020-12-02 07:07] LABS: HEMATOCRIT 29.6 % (42.0-52.0); HEMOGLOBIN 9.8 g/dl (13.5-18.0); MEAN CORPUSCULAR HEMOGLOBIN 34 pg (27.0-31.0)
[2020-12-02 07:16] LABS: ALBUMIN 3.2 gm/dL (3.5-5.0); BILIRUBIN,TOTAL 3.7 mg/dL (0.0-1.0); CALCIUM 8.5 mg/dL (8.4-10.2); CREATININE, serum 0.38 (0.66-1.25); MAGNESIUM 1.7 mg/dL (1.6-2.3); POTASSIUM 3.5 mmol/L (3.4-5.0); TOTAL PROTEIN 6.4 gm/dL (6.4-8.2)
--- NOTE | 2020-12-02 18:04 | NUR ---
Patient resting a majority of the day. Upon checking and changing, lower abdomen was palpated and felt firm. Bladder scan was done showing 750mL retained. Doctor notified and brasher catheter was placed. Patient refused morning and noon meals but has done well eating dinner. When awake/alert, patient is very pleasant.
--- NOTE | 2020-12-02 19:32 | NUR ---
Awake, alert, CIWA protocol, Seizure precautions in place, telemetry in use, extensive bruising to back noted, brasher draining dark jhoana urine per gravity, bedrest continues, updated on plan of care.
[2020-12-03 04:58] VITALS: BP 150/83; PULSE 86; TEMP 97.4
[2020-12-03 05:03] VITALS: BP 146/76; PULSE 86
[2020-12-03 06:32] LABS: HEMOGLOBIN 10.2 g/dl (13.5-18.0); MEAN CELL VOLUME 106 fl (80.0-100.0); MEAN CORPUSCULAR HEMOGLOBIN 35 pg (27.0-31.0); MEAN CORPUSCULAR HGB CONC 33 g/dl (33.0-37.0); MEAN PLATELET VOLUME 10.2 fl (7.4-10.4); PLATELET COUNT 139 K/mm3 (130-400); REDCELL DISTRIBUTION WIDTH-CV 12.7 % (11.5-14.5)
[2020-12-03 06:33] LABS: HEMATOCRIT 30.6 % (42.0-52.0)
[2020-12-03 06:43] LABS: CALCIUM 8.4 mg/dL (8.4-10.2); CREATININE, serum 0.36 (0.66-1.25); POTASSIUM 3.4 mmol/L (3.4-5.0)
[2020-12-03 06:59] LABS: BAND 5 % (0-10); HYPOCHROMIA 1+; LYMPHOCYTE 25 % (20.0-51.0); NEUTROPHILS 57 % (42.0-75.2); OVALOCYTES 1+; PLATELET ESTIMATE NORMAL (NORMAL); POIKILOCYTOSIS 1+
--- NOTE | 2020-12-03 07:04 | NUR ---
PT SLEEPING AT THIS TIME. STUDENT NURSE MALI WILL BE ASSISTING WITH PT CARES TODAY. WILL CONTINUE TO MONITOR. NO FURTHER CONCERNS.
[2020-12-03 07:10] VITALS: BP 154/82; PULSE 83; TEMP 97.8
[2020-12-03 11:08] VITALS: BP 128/76; PULSE 76; TEMP 98.4
[2020-12-03 15:26] VITALS: BP 150/87; PULSE 77; TEMP 98.5
--- NOTE | 2020-12-03 17:59 | NUR ---
Patient slept all morning, refusing breakfast and lunch. At approx. 1600 patient was woken up for medication administration, oral care was also done using an oral care kit. Patient has been scoring low on CIWA, and has been very pleasant when awake. Patient ate all of his dinner with the SHOW DOG TRAINER's assistance.
[2020-12-03 19:46] VITALS: BP 121/73; PULSE 102; TEMP 99
--- NOTE | 2020-12-03 19:57 | NUR ---
Awake, alert, max assist required with movement, repositioned frequently, appetite good, encouraging nutrition, telemetry in use, seizure precautions in place, CIWA protocol in use, updated on plan of care.
[2020-12-04] VITALS (7 sets, daily range): BP systolic 116–156; BP diastolic 71–85; PULSE 78–98; TEMP 98.2–98.5
[2020-12-04 06:47] LABS: HEMOGLOBIN 10.4 g/dl (13.5-18.0); MEAN CELL VOLUME 104 fl (80.0-100.0); MEAN CORPUSCULAR HEMOGLOBIN 35 pg (27.0-31.0); MEAN CORPUSCULAR HGB CONC 34 g/dl (33.0-37.0); MEAN PLATELET VOLUME 9.8 fl (7.4-10.4); PLATELET COUNT 160 K/mm3 (130-400); RED BLOOD COUNT 2.96 M/mm3 (4.20-5.60); REDCELL DISTRIBUTION WIDTH-CV 12.7 % (11.5-14.5)
[2020-12-04 06:48] LABS: HEMATOCRIT 30.9 % (42.0-52.0)
--- NOTE | 2020-12-04 07:00 | NUR ---
Report received from BARBARA Foote. PT in bed resting, will continue to monitor.
[2020-12-04 07:03] LABS: CALCIUM 8.5 mg/dL (8.4-10.2); CREATININE, serum 0.37 (0.66-1.25); POTASSIUM 3.7 mmol/L (3.4-5.0)
--- NOTE | 2020-12-04 07:07 | NUR ---
During morning report, patient was laying in bed. He was pleasant and was able to communicate effective. He is alert but not fully oriented. Patient does not remember he is in the hospital, but in a hotel in [place], [place].
[2020-12-04 07:28] LABS: BAND 11 % (0-10); EOSINOPHIL 2 % (0-4); LYMPHOCYTE 29 % (20.0-51.0); METAMYELOCYTE 1 % (0-0); NEUTROPHILS 49 % (42.0-75.2); PLATELET ESTIMATE NORMAL (NORMAL)
--- NOTE | 2020-12-04 09:30 | NUR ---
Assessment charted. Pt doing well, still confused on the date and location but oreinted to self. Seems more alert and agreeable today, still complains of back pain. Resting in bed, rash to forehead is more noticeable today, will talk to hospitalist. IVF to RFA. Denies needs, will continue to monitor.
--- NOTE | 2020-12-04 11:27 | NUR ---
Patient recieved a complete bed bath, hair shampooed, and bedding changed. I also applied presribed cream to patients faces in the affected areas. Patient is comfortable in his recliner. No pain or further request at this time.
--- NOTE | 2020-12-04 13:40 | NUR ---
Patient ordered his lunch, but did not want to eat anything once it arrived. I went to check on patient, he is sleeping in bed with bed alarm activated.
--- NOTE | 2020-12-04 14:44 | NUR ---
This instructor supervised care provided by [facility], agree with documentation.
--- NOTE | 2020-12-04 18:11 | NUR ---
Pt rested off and on this afternoon, remains disoriented to place and date. Updated daughter on plan of care. Pt resting in bed, did get up and back to chair today with 2PAX assist. Palomino is now jhoana and clear urine since stopping IVF. Pt taking some PO but does not initiate intake on own. Ordered supper, resting. Will assist with feeding this evening and give bedside shift report to nightshift nurse who will resume care.
--- NOTE | 2020-12-04 19:21 | NUR ---
Awake, alert, oriented to self, not oriented to place, time, situation, repositioned in bed, call pagan w/i reach, telemetry in use, call pagan w/i reach, patient requires assistance with nutrition- feeding, incontinent, max x 2 assist with repositioning in bed, offloading pressure areas.
--- NOTE | 2020-12-04 22:13 | NUR ---
Two opposing orders regarding removal or maintain of patient's brasher are present and active in patient's chart. PARTH Jeff notified and recommends removal of brasher wait until provider sees patient in AM. Brasher will remain in place overnight per Randee's recs.
[2020-12-05 04:08] VITALS: BP 144/81; PULSE 87; TEMP 98.5
--- NOTE | 2020-12-05 06:40 | NUR ---
appears to be sleeping, bedside shift report received from BARBARA Foote
[2020-12-05 07:21] LABS: CALCIUM 8.5 mg/dL (8.4-10.2); CREATININE, serum 0.36 (0.66-1.25); POTASSIUM 3.7 mmol/L (3.4-5.0)
[2020-12-05 07:57] VITALS: BP 127/77; PULSE 86; TEMP 98.3
--- NOTE | 2020-12-05 08:40 | NUR ---
continues to sleep, awakened and offered breakfast but he declines wanting any breakfast, full assessment completed, see interventions for further info, rolled to side for assessment, has bruising down entire right side, c/o pain between shoulders and lidocaine patch placed, has 3cm scabbed area to lateral side of heel, has dressing to right outer side of lower extremity, removed and has approx 4cm open skin tear area, dressings to both elbows, these were not removed at this time, brasher catheter removed, instructed him on use of urinal and calling when he needs to void, he is oriented this am and verbalizes understanding,
--- NOTE | 2020-12-05 09:14 | NUR ---
occupational therapy in to work with patient
--- NOTE | 2020-12-05 09:45 | NUR ---
Dr Cartwright and care team in to see patient
--- NOTE | 2020-12-05 10:47 | NUR ---
physical therapy in to see patient, patient ambulated in kaur with use of walker and moved with slow steady gait, back to room and sitting up in recliner
--- NOTE | 2020-12-05 11:02 | NUR ---
provided nectar thick enlive and encouraged him to drink it, he is also asking about lunch and this was ordered
[2020-12-05 11:14] VITALS: BP 112/80; PULSE 98; TEMP 98
--- NOTE | 2020-12-05 11:59 | NUR ---
sitting up in chair and has had lunch and tolerated well, is ready to go back to bed
--- NOTE | 2020-12-05 12:12 | NUR ---
assisted back to bed, bed alarm on
--- NOTE | 2020-12-05 14:17 | NUR ---
Ana Luisa from [facility] reports they can accept the patient for post acute rehab. Awaiting insurance authorization.
--- NOTE | 2020-12-05 14:30 | NUR ---
physical therapy in and ambulated him out in kaur, then back to room and into bed
[2020-12-05] MEDS ORDERED: ROBAXIN 50500 MG/TAB PO (15:12)
[2020-12-05] MEDS ORDERED: NORVASC 5MG5 MG/TAB PO (15:13)
[2020-12-05] MEDS ORDERED: NICODERM C21 MG/PATC TD (15:13)
[2020-12-05] MEDS ORDERED: MAG-OX 400400 MG/TAB PO (15:14)
[2020-12-05] MEDS ORDERED: TYLENOL 325MG325 MG PO (15:14)
[2020-12-05] MEDS ORDERED: PAXIL 20MG20 MG PO (15:14)
[2020-12-05] MEDS ORDERED: DUO-KAPS1 CAP PO (15:15)
[2020-12-05] MEDS ORDERED: FOLIC ACID 11 MG/TA1 PO (15:15)
[2020-12-05] MEDS ORDERED: HYDROCORTISON28.4 GM TP (15:15)
[2020-12-05] MEDS ORDERED: BLUE-EMU LIDOC1 EACH TP (15:15)
[2020-12-05 15:19] VITALS: BP 112/80; PULSE 98; TEMP 98
--- NOTE | 2020-12-05 15:39 | NUR ---
report called to BARBARA Hubbard in IPR
--- NOTE | 2020-12-05 15:54 | NUR ---
up to bathroom and voided large amount, transferred per WC to IPR
--- NOTE | 2020-12-05 16:06 | NUR ---
The patient discharged to [facility] today, 12/05. Pad Machine Offbearer attempted to contact the patient's daughter to provide the above update.
== END 2020-12-05 15:54 | DRG 896 ==
LOC: COL.ER 09:52 → EDBEDREQ 13:28 → ICU 13:33 → MEDICAL 11-30 12:57
PROVIDERS: Hospitalist; Physician Assistant; Student in an Organized Health Care Education/Training Program; ADMIT Internal Medicine
DX: F10.239 Alcohol dependence with withdrawal, unspecified (principal); E43 Unspecified severe protein-calorie malnutrition; E87.2 Acidosis; E87.1 Hypo-osmolality and hyponatremia; E46 Unspecified protein-calorie malnutrition; T79.6XXA Traumatic ischemia of muscle, initial encounter; F10.24 Alcohol dependence with alcohol-induced mood disorder; I10 Essential (primary) hypertension; I25.10 Atherosclerotic heart disease of native coronary artery without angina pectoris; F32.9 Major depressive disorder, single episode, unspecified; F17.210 Nicotine dependence, cigarettes, uncomplicated; M48.56XD Collapsed vertebra, not elsewhere classified, lumbar region, subsequent encounter for fracture with routine healing; J43.9 Emphysema, unspecified; E83.42 Hypomagnesemia; K76.0 Fatty (change of) liver, not elsewhere classified; R74.01 Elevation of levels of liver transaminase levels; D72.829 Elevated white blood cell count, unspecified; D69.6 Thrombocytopenia, unspecified; Z68.22 Body mass index [BMI] 22.0-22.9, adult; Y90.6 Blood alcohol level of 120-199 mg/100 ml; W18.2XXA Fall in (into) shower or empty bathtub, initial encounter
CPT/HCPCS: 99223-AI; 99232-AI; 99233-AI; 99239; J0360; J0692; J1650; J2060; J2405; J3411; J3475; J3480; J7030; J7120

== ENCOUNTER 2020-12-05 15:02 | Inpatient (IN) | payer BC ==
[~2020-12-05] VITALS: Ht 175.3 cm; Wt 56.6 kg
[~2020-12-05 15:02] MED LIST changes: +LEXAPRO20 MG PO; +NATURE'S BLEND100 M2 PO; +REMERON 15M15 MG/TA1 PO; +VITAMIN B12 781 TAB PO
[2020-12-05] MEDS ORDERED: ROBAXIN 50500 MG/TAB PO (15:12)
[2020-12-05] MEDS ORDERED: NICODERM C21 MG/PATC TD (15:13)
[2020-12-05] MEDS ORDERED: NORVASC 5MG5 MG/TAB PO (15:13)
[2020-12-05] MEDS ORDERED: PAXIL 20MG20 MG PO (15:14)
[2020-12-05] MEDS ORDERED: MAG-OX 400400 MG/TAB PO (15:14)
[2020-12-05] MEDS ORDERED: TYLENOL 325MG325 MG PO (15:14)
[2020-12-05] MEDS ORDERED: FOLIC ACID 11 MG/TA1 PO (15:15)
[2020-12-05] MEDS ORDERED: BLUE-EMU LIDOC1 EACH TP (15:15)
[2020-12-05] MEDS ORDERED: HYDROCORTISON28.4 GM TP (15:15)
[2020-12-05] MEDS ORDERED: DUO-KAPS1 CAP PO (15:15)
[2020-12-05 17:18] VITALS: BP 112/78; PULSE 102; TEMP 97.7
[2020-12-05 17:20] VITALS: BP 112/78; PULSE 102; TEMP 97.7
[2020-12-05 18:02] VITALS: BP 112/78; PULSE 85; TEMP 98.8
--- NOTE | 2020-12-05 18:58 | NUR ---
PT BROUGHT OVER FROM MEDICAL AT 1600 TO ROOM 337. PT ORIENTED TO UNIT AND REHAB SCHEDULE. ALL PAPERWORK SIGNED, ASSESSMENTS COMPLETED, MED REC COMPLETED. PT NOT VOIDING WELL SINCE TRANSFER. ATTEMPTED TO GO TO BATHROOM TWICE AND WAS UNABLE TO VOID OR ONLY VOIDED MINIMAL AMOUNT.
--- NOTE | 2020-12-05 19:04 | NUR ---
RECEIVED CHANGE OF SHIFT REPORT FROM DAY SHIFT NURSE.
--- NOTE | 2020-12-05 21:05 | NUR ---
PATIENT'S [id number], LUCERO Reid, CALLED, WANTING PATIENT'S STATUS UPDATE, PATIENT GAVE VERBAL CONSENT FOR STAFF TO SPEAK WITH LUCERO VacaLuci AND AFTER SPEAKING WITH FAMILY MEMBER, NO FURTHER QUESTIONS OR CONCERNS REPORTED AT END OF CALL.
[2020-12-06 03:45] VITALS: BP 136/84; PULSE 61; TEMP 97.2
--- NOTE | 2020-12-06 07:07 | NUR ---
CHANGE OF SHIFT REPORT GIVEN TO DAY SHIFT NURSE, KESHIA JIMENEZ.
--- NOTE | 2020-12-06 07:47 | NUR ---
Patient resting in recliner, call light in reach and alarm set. Will continue to monitor.
--- NOTE | 2020-12-06 10:16 | NUR ---
SW met with the patient to complete intake, as the patient is new to [facility]. The patient lives alone in [place]. He states that his daughter, Frida (ph#[phone]), lives in [place] and comes over to visit him. He reports independence with ADLs prior to hospitalization and has a walker. The patient's PCP is Dr. Marie Rollins and he receives his medications from [facility]. He reports no difficulties obtaining his meds. The patient's DPOA-HC is in EMR and it designates his daughter, Frida, and his older brother, Tahira Garcia, as the alternate. 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 SW addressed this with the patient and discussed treatment options. The patient states that alcohol treatment was discussed with him when he was on the acute side. He reports that he is undecided on whether he would want any treatment or not. SW to continue to follow.
--- NOTE | 2020-12-06 16:19 | NUR ---
ROSA met with the patient to present and review the IPR team conference note. It was the patient's first day in rehab and the therapists were making their evaluations. The team plans to re-eval him next Friday. The patient was agreeable to the plan. SW contacted and updated the patient's daughter, Frida. Frida was also agreeable to the plan. SW to continue to follow.
[2020-12-06 16:25] VITALS: BP 124/70; PULSE 90; TEMP 98.8
--- NOTE | 2020-12-06 16:55 | NUR ---
Attempted to collect a urine sample multiple times today, but did not have any success. Patient attended all therapies this shift. Patient used his call light appropriatly this afternoon. Will continue to monitor.
--- NOTE | 2020-12-06 21:00 | NUR ---
ASSISTED PT TO BR WITH WALKER. UNSTEADY GAIT. POOR SAFETY JUDGEMENT. UA OBTAINED AND SENT TO LAB. URINE CONCENTRATED AMBE BUT CLEAR. HAS ODOR. ENC PT TO DRINK MORE FLUIDS. REVIEWED THERAPY SCHEDULE FOR TOMORROW WITH PT. PT AGREEABLE. DENIES PAIN. REMEMBERS THIS NURSE'S NAME. , November. THOUGHT IT WAS 2019. USES CALL LIGHT. BED ALARMS SET. NO NEEDS AT THIS TIME.
[2020-12-06 21:20] LABS: COLLECTION METHOD CLEAN CATCH
[2020-12-06 21:31] LABS: MUCOUS Present /lpf; PH 7 (5-8); SQUAMOUS EPITHELIAL None Seen /hpf; URINE APPEARANCE Hazy; URINE BACTERIA None Seen /hpf; URINE BILIRUBIN Negative (NEGATIVE); URINE BLOOD 3+ (NEGATIVE); URINE COLOR Yellow; URINE GLUCOSE Negative (NEGATIVE); URINE KETONE Trace (NEGATIVE); URINE LEUKOCYTE ESTERASE Negative (NEGATIVE); URINE NITRATE Negative (NEGATIVE); URINE PROTEIN(semi-quant) Negative (NEGATIVE); URINE RBC >50 /hpf
--- NOTE | 2020-12-07 05:00 | NUR ---
PT HAS BEEN URINATING WELL NOW BUT WITH SOME INCONTINENCE. UP TO BR A FEW TIMES IN THE NIGHT. WEARS BRIEFS FOR URINARY INCONTINENCE.
[2020-12-07 05:28] VITALS: BP 121/84; PULSE 81; PULSE 841; TEMP 98.4
--- NOTE | 2020-12-07 08:28 | NUR ---
Patient resting in bed, call light in reach and bed alarm set. Patient denies questions at this time.
[2020-12-07 16:30] VITALS: BP 141/86; PULSE 86; TEMP 98.2
--- NOTE | 2020-12-07 20:22 | NUR ---
Patient attended all therapies this shift. He tolerated diet well. He used his call light appropriatly. He reported that he had a BM on 12/06, but he flushed it before staff could observe it. Patient takes pills whole with water. Denies any questions. Reported off to night nurse.
--- NOTE | 2020-12-07 21:00 | NUR ---
PT RESTING IN BED. DENIES COMPLAINTS. WANTED ICE CREAM- ENC SWALLOW PRECAUTIONS. PT AGREED. ASSISTED TO BR WITH WALKER. UNSTEADY GAIT. POOR SAFETY JUDGMENTS. ENC SAFETY. CALL LIGHT IN REACH. BED ALARM SET.
[2020-12-08 05:10] VITALS: BP 117/72; PULSE 87; TEMP 98.2
--- NOTE | 2020-12-08 05:16 | NUR ---
PT HAS SLEPT WELL THROUGH THE NIGHT. NO CHANGE IN CONDITION.
--- NOTE | 2020-12-08 09:43 | NUR ---
PT DENIED PAIN THIS AM. URINATING FREQUENTLY, NO COMPLAINTS.
--- NOTE | 2020-12-08 15:06 | NUR ---
Admission QIM scores were reviewed by the team. Code of 5 chosen for eating was determined by team discussion to be the most usual performance for this patient during the assessment period. Code of 4 chosen for oral hygiene was determined by team discussion to be the most usual performance before interventions for this patient during the assessment period. Code of 4 chosen for toilet hygiene was determined by team discussion to be the most usual performance before interventions for this patient during the assessment period. Code of 3 chosen for toilet transfers was determined by team discussion to be the most usual performance before interventions for this patient during the assessment period. Code of 4 chosen for rolling left to right was determined by team discussion to be the most usual performance before interventions for this patient during the assessment period. Code of 4 chosen for sit to lying was determined by team discussion to be the most usual performance before interventions for this patient during the assessment period. Code of 4 chosen for lying to sitting side of bed was determined by team discussion to be the most usual performance before interventions for this patient during the assessment period. Code of 3 chosen for sit to stand was determined by team discussion to be the most usual performance before interventions for this patient during the assessment period.
[2020-12-08 16:14] VITALS: BP 152/83; PULSE 90; TEMP 98.3
--- NOTE | 2020-12-08 18:24 | NUR ---
PT DENIED PAIN, WALKING WELL WITHOUT ASSISTIVE DEVICE. PT VOIDING FREQUENTLY AND HAD TWO BM'S TODAY.
--- NOTE | 2020-12-08 19:29 | NUR ---
Awake, alert, oriented x 4, able to make needs known, denies pain, eating icecream at this time, impulsiveness noted, bed alarm in use, will continue to monitor.
[2020-12-09 05:45] VITALS: BP 126/82; PULSE 80; TEMP 98.2
--- NOTE | 2020-12-09 05:57 | NUR ---
Awake, alert, oriented x 3, impulsive for bathroom needs, urinated frequently throughout shift, ambulates with steady gait, uses call pagan, denies pain, will continue to montior.
[2020-12-09 07:03] LABS: ALBUMIN 3.3 gm/dL (3.5-5.0); CALCIUM 8.7 mg/dL (8.4-10.2); CREATININE, serum 0.34 (0.66-1.25); MAGNESIUM 2.1 mg/dL (1.6-2.3); TOTAL PROTEIN 6.7 gm/dL (6.4-8.2)
--- NOTE | 2020-12-09 08:15 | NUR ---
AM SHIFT ASSESSMENT COMPLETE. MORNING MEDICATIONS ADMINISTERED AT THIS TIME. PATIENT DENIES PAIN. CALL LIGHT WITHIN REACH. PATIENT DENIES ANY ADDITIONAL NEEDS AT THIS TIME.
--- NOTE | 2020-12-09 16:00 | NUR ---
REPORT GIVEN TO BARBARA FELICIANO.
[2020-12-09 17:20] VITALS: BP 154/74; PULSE 95; TEMP 98
--- NOTE | 2020-12-09 17:27 | NUR ---
Patient sitting up in recliner. Denies needs at this time. Will report off to shift supervisor.
[2020-12-10 04:33] VITALS: BP 155/73; PULSE 69; TEMP 97
--- NOTE | 2020-12-10 08:20 | NUR ---
Agree with assessment documented by Astrid, student nurse. Patient lying in bed watching TV. Alert and oriented x4. Minimal pain in ribs, rates 5/10, describes as sore. Lidocaine patch applied to left outer rib area. Patient has Mepilex to right elbow and right calf, both CDI. Brusing noted to right arms and bilat lower extremities. Some scabs noted to lower extremities. Instruct patient to call for help when assistance is needed out of bed. Patient says that tomorrow they are suppose to make him independent in the room. Explain until he is given that clearance and it is official he will still need to call for assistance and we will have to put alarms on. Patient expresses frustration with this that the alarm will be on. Explain that it is just for his safety and we are here to help him. Patient denies additional needs at this time.
--- NOTE | 2020-12-10 10:15 | NUR ---
PATIENT ASSISTED TO SINK TO PERFORM ORAL HYGIENE WITH SBA. PATIENT GIVEN WARM WIPES TO PERFORM HYGIENE CARE WITH SBA. PATIENT AMBULATED OUTSIDE OF ROOM FOR 2 LAPS AROUND IPR/SURGICAL FLOOR WITH SBA. TOLERATED ACTIVITIES WELL. PATIENT RETURNED TO BED WITH CALL LIGHT WITHIN REACH AND BED ALARM ON.
--- NOTE | 2020-12-10 11:15 | NUR ---
PATIENT CALLED OUT TO USE RESTROOM AND THIS STUDENT NURSE PROVIDED SBA. PATIENT MOVED TO CHAIR AND CHAIR ALARM SET. CALL LIGHT WITHIN REACH.
--- NOTE | 2020-12-10 14:44 | NUR ---
Patient asks to ambulate in halls. Ambulate with the patient twice around the IPR/Surgical floor. Gait steady. Patient returns to room. Provide ice cream and ice water per patient request. Patient hopes to become independent tomorrow. Encourage patient to ask PT about going independent in room and if they for some reason say no ask them what he needs to do to be able to become independent. Patient verbalizes understanding. Laying in bed at this time. Denies additional needs.
[2020-12-10 15:39] VITALS: BP 137/71; PULSE 77; TEMP 98.5
--- NOTE | 2020-12-10 15:55 | NUR ---
PATIENT LAYING IN BED ALERT & ORIENTED. STATES PAIN LEVEL 5/10 AND WANTING MEDICATION. TYLENOL GIVEN. DENIES OTHER NEEDS AT THIS TIME. WILL CONTINUE TO MONITOR. CALL LIGHT IN REACH.
--- NOTE | 2020-12-10 17:08 | NUR ---
Agree with all notes and assessments entered by student nurse Astrid.
--- NOTE | 2020-12-10 20:32 | NUR ---
Awake, alert, ox 3, ambulates with steady gait with sba, bed alarm in use for implusivness, denies pain, encouarging intake.
[2020-12-11 06:01] VITALS: BP 137/89; PULSE 76; TEMP 98.1
--- NOTE | 2020-12-11 10:35 | NUR ---
Follow-up visit; Patient thanked Baby Nurse for stopping in again and offering encouragement and God's blessings.
--- NOTE | 2020-12-11 15:01 | NUR ---
Patient Case Manager spoke with ST Cori who advised the team agrees that patient is ready for discharge on 12/13/20. ROSA met with patient who is agreeable to this discharge date and is looking forward to getting home. Outpatient PT/OT is recommended. Patient would like to be set up at [facility] on [address]. ROSA explained to patient that they only have PT. Patient was agreeable to have his PT/OT evals scheduled at the location on [facility]. SW spoke with patient about drug and alcohol treatment. Patient states he would really like to get home first before starting anything. Patient was agreeable to have SW call [facility] to obtain information on their intake process but patient states to not "sign him up for anything". ROSA contacted [facility] intake office and was advised that once they receive referral, they email out paperwork for patient to complete before they will make an appointment with patient. ROSA contacted patient's daughter, Frida to review discharge plan. Frida states paperwork from [facility] can be emailed to her at [email or web address]. Frida inquired about ideas/services to keep patient engaged and to break old habits. Frida states last year after patient was discharged from [facility], once he was done with outpatient PT/OT he fell back into old habits. ROSA discussed the benefit of drug and alcohol/mental health services again and Frida verbalized understanding. ROSA inquired if patient has been set up with Meals on Wheels and Frida advised they would be interested in this. Frida is also interested in obtaining information about AA meeting and a medical alert button for patient's home. ROSA to provide information about Meals on Wheels, AA, and medical alert systems to patient. ROSA contacted [facility] on [address] and scheduled patient's PT/OT evaluation appointments for 12/19/20 @7893 (OT) and 3285 (PT). ROSA provided appointments to BARBARA Hubbard. ROSA to fax records/discharge orders to fax #[phone] upon discharge.
[2020-12-11 17:15] VITALS: BP 143/82; PULSE 87; TEMP 98.1
--- NOTE | 2020-12-11 18:53 | NUR ---
PT MADE INDEPENDENT IN ROOM BY THERAPY TODAY. PT EATING A LOT OF ICE CREAM BUT NO COMPLAINTS TODAY.
[2020-12-12 05:38] VITALS: BP 146/80; PULSE 61; TEMP 97.5
--- NOTE | 2020-12-12 05:49 | NUR ---
Patient ambulating independently in room, tolerating well. Requested strawberry ice cream before bed. No complaints of pain. Call light within reach.
--- NOTE | 2020-12-12 09:43 | NUR ---
Patient is independent in his room. Tolerated breakfast meal well this morning. Attending his morning therapies at this time.
--- NOTE | 2020-12-12 11:06 | NUR ---
Environmental Science Program Director met with patient to discuss discharge planning. Patient is agreeable to have SW contact [facility] to give referral, but still does not want an appointment made at this time. Patient does express interest in AA meetings. SW provided a list of local Drug and Alcohol Resources including AA meetings and where to locate in person meetings. SW also provided patient with information about medical alert buttons and Meals on Wheels through the [facility]. Patient states he will think about both of these things. Patient is interested in Meals on Wheels but would prefer to call them himself over SW calling. Patient states he also has in home services through [facility] and they help him with errands and meal prep as needed. ROSA contacted [facility] and was advised the institutional research coordinator for Drug and Alcohol services was out of the office. ROSA was advised to send an email to [email or web address]. ROSA emailed this address and requested a phone call to provide patient's information.
[2020-12-12 16:45] VITALS: BP 137/64; PULSE 88; TEMP 98.3
--- NOTE | 2020-12-12 19:44 | NUR ---
Patient attended all his therapies today. This nurse observed patient's wounds to bilateral elbows of which are now healing well. They were left open to air at this time. Skin tear to patient's Right lower extremity was cleaned and applied xeroform and secured with mepilex bandage. Patient tolerated well. Will continue to monitor.
[2020-12-13 04:24] VITALS: BP 123/77; PULSE 77; TEMP 98
--- NOTE | 2020-12-13 05:17 | NUR ---
PATIENT AMBULATING INDEPENDENTLY IN HIS ROOM. PATIENT EXCITED TO GO HOME TODAY. NO NEW ISSUES NOTED OR REPORTED BY PATIENT.
--- NOTE | 2020-12-13 08:32 | NUR ---
Patient resting in recliner at this time and is independent in his room. Will continue to monitor.
--- NOTE | 2020-12-13 09:33 | NUR ---
Follow-up visit; Patient doing well and thanked Supervisor Filtration for checking on him while he has been a patient at [facility]. Patient states he is going to take better care of himself.
--- NOTE | 2020-12-13 11:07 | NUR ---
Patient to discharge home today with outpatient PT/OT. ROSA faxed H&P, therapy notes, and discharge orders to [facility] on [address]. ROSA contacted [facility] and left another voicemail message for Substance Use Disorders admissions. ROSA contacted patient's daughter, Frida to provide update. rFida advised that patient also has services in home from [facility]. Frida did express concern about patient returning home and falling into old habits. ROSA advised Frida that ROSA provided list of local AA meeting and patient expressed interest in this yesterday. ROSA also advised that information was provided for Meals on Wheels and medical alert systems.
--- NOTE | 2020-12-13 11:56 | NUR ---
Patient requested another breathing treatment. RT was called - they will be coming to see him in a 1/2 hour. Patient was informed of this. Will continue to monitor.
--- NOTE | 2020-12-13 14:00 | NUR ---
Patient Health Summary, Discharge Summary, and Home Meds printed and reviewed with patient and daughter. Stressed importance of follow up appointments. Called prescriptions for plavix and norvasc to pharmacy of choice. Belongings gathered by TEAM GUIDE/Elvis including phone, animation director, clothing and misc. personal items. Patient transported via wheelchair by TEAM GUIDE/Elvis and seatbelted for ride home with daughter. Patient denied any questions.
== END 2020-12-13 13:25 | disposition home or self-care (01) | DRG 947 ==
PROVIDERS: Physician Assistant; ADMIT Internal Medicine
DX: R53.81 Other malaise (principal); E43 Unspecified severe protein-calorie malnutrition; M62.82 Rhabdomyolysis; E87.1 Hypo-osmolality and hyponatremia; G72.1 Alcoholic myopathy; J43.9 Emphysema, unspecified; I25.10 Atherosclerotic heart disease of native coronary artery without angina pectoris; K76.0 Fatty (change of) liver, not elsewhere classified; I10 Essential (primary) hypertension; E83.42 Hypomagnesemia; L21.9 Seborrheic dermatitis, unspecified; D69.6 Thrombocytopenia, unspecified; S32.010D Wedge compression fracture of first lumbar vertebra, subsequent encounter for fracture with routine healing; Z68.22 Body mass index [BMI] 22.0-22.9, adult; D72.829 Elevated white blood cell count, unspecified; R13.10 Dysphagia, unspecified; F32.9 Major depressive disorder, single episode, unspecified; R74.8 Abnormal levels of other serum enzymes; F17.210 Nicotine dependence, cigarettes, uncomplicated; F10.20 Alcohol dependence, uncomplicated; Z79.891 Long term (current) use of opiate analgesic; Z79.1 Long term (current) use of non-steroidal anti-inflammatories (NSAID); Z91.81 History of falling
CPT/HCPCS: 99222-AI; 99231-AI; 99232-AI; 99239; J1650

== ENCOUNTER 2020-12-27 09:15 | Outpatient (RCR) | payer BC ==
[~2020-12-27 09:15] MED LIST changes: +BLUE-EMU LIDOC1 EACH TP; +DUO-KAPS1 CAP PO; +HYDROCORTISON28.4 GM TP; +PAXIL 20MG20 MG PO; +ROBAXIN 50500 MG/TAB PO
== END 2021-01-25 11:26 ==
LOC: WSC 09:15
DX: R26.89 Other abnormalities of gait and mobility (principal); G72.1 Alcoholic myopathy; T79.6XXA Traumatic ischemia of muscle, initial encounter; W19.XXXA Unspecified fall, initial encounter

== ENCOUNTER 2021-05-22 22:08 | Emergency (ER) | payer BC ==
[2021-05-22 22:10] VITALS: TEMP 99
[2021-05-22 22:45] LABS: BASO # 0.1 (0.0-0.2); BASO % 1.5 % (0.0-2.0); EOS # 0.2 (0.0-0.7); EOS % 3.2 % (0-4.0); GRAN # 3.4 (1.4-6.5); GRAN % 51.7 % (42.2-75.2); HEMATOCRIT 39.6 % (42.0-52.0); HEMOGLOBIN 13.7 g/dl (13.5-18.0); LYMPH # 2.2 (1.2-3.4); LYMPH % 33.1 % (20.0-51.0); MEAN CELL VOLUME 104 fl (80.0-100.0); MEAN CORPUSCULAR HEMOGLOBIN 36 pg (27.0-31.0); MEAN CORPUSCULAR HGB CONC 35 g/dl (33.0-37.0); MEAN PLATELET VOLUME 8.7 fl (7.4-10.4); MONO # 0.7 (0.1-0.6); MONO % 10.2 % (1.7-9.3); PLATELET COUNT 158 K/mm3 (130-400); RED BLOOD COUNT 3.81 M/mm3 (4.20-5.60); REDCELL DISTRIBUTION WIDTH-CV 12.2 % (11.5-14.5)
[2021-05-22 22:56] LABS: ALANINE AMINOTRANSFERASE 53 U/L (4-49); ALBUMIN 4.4 gm/dL (3.5-5.0); ALKALINE PHOSPHATASE 128 U/L (50-136); ANION GAP 12 mmol/L (7-16); AST,SGOT 90 U/L (15-37); BILIRUBIN,TOTAL 0.6 mg/dL (0.0-1.0); BLOOD UREA NITROGEN 3 mg/dL (9-20); CALCIUM 8.8 mg/dL (8.4-10.2); CARBON DIOXIDE 27 mmol/L (22-30); CHLORIDE 93 mmol/L (98-107); GLUCOSE 133 mg/dL (74-106); LIPASE 287 U/L (23-300); MAGNESIUM 1.8 mg/dL (1.6-2.3); POTASSIUM 3.7 mmol/L (3.4-5.0); SODIUM 132 mmol/L (137-145)
[2021-05-22 23:27] LABS: TSH w REFLEX 2.264 uIU/mL (0.350-4.940)
[2021-05-22 23:32] LABS: TROPONIN-I < 0.012 ng/mL (0.00-0.033)
[2021-05-23 00:19] VITALS: BP 127/85; PULSE 92
== END 2021-05-23 00:19 | disposition home or self-care (01) ==
LOC: COL.ER 22:08
PROVIDERS: Emergency Medicine
DX: S01.01XA Laceration without foreign body of scalp, initial encounter (principal); F10.10 Alcohol abuse, uncomplicated; E87.8 Other disorders of electrolyte and fluid balance, not elsewhere classified; F32.9 Major depressive disorder, single episode, unspecified; F17.210 Nicotine dependence, cigarettes, uncomplicated; Z79.899 Other long term (current) drug therapy; Z20.822 Contact with and (suspected) exposure to COVID-19; W19.XXXA Unspecified fall, initial encounter; W22.8XXA Striking against or struck by other objects, initial encounter; Y92.009 Unspecified place in unspecified non-institutional (private) residence as the place of occurrence of the external cause

== ENCOUNTER → 2021-05-31 | Outpatient (CLI) | payer BC ==
[2021-05-31 12:21] VITALS: BP 142/81; PULSE 90; TEMP 98.1
== END ==
LOC: COL.ER 12:07
DX: Z48.02 Encounter for removal of sutures (principal)

== ENCOUNTER 2022-03-28 10:56 | Inpatient (IN) | payer BC ==
[~2022-03-28] VITALS: Ht 177.8 cm; Wt 63.5 kg
[2022-03-28 12:14] LABS: BASO # 0.1 K/mm3 (0.0-0.2); BASO % 1.2 % (0.0-2.0); EOS % 0.7 % (0.0-4.0); GRAN # 2.5 K/mm3 (1.4-6.5); GRAN % 59.6 % (42.2-75.2); HEMOGLOBIN 13.8 g/dl (13.5-18.0); LYMPH % 23.9 % (20.0-51.0); MEAN CELL VOLUME 99 fl (80.0-100.0); MEAN CORPUSCULAR HEMOGLOBIN 35 pg (27-31); MEAN CORPUSCULAR HGB CONC 35 g/dl (33.0-37.0); MONO # 0.6 K/mm3 (0.1-0.6); MONO % 13.9 % (1.7-9.3); PLATELET COUNT 80 K/mm3 (130-400); RED BLOOD COUNT 3.94 M/mm3 (4.20-5.60)
[2022-03-28 12:22] LABS: ALBUMIN 3.7 gm/dL (3.4-4.8); CALCIUM 8.6 mg/dL (8.4-10.2); CREATININE, serum 0.57 mg/dL (0.72-1.25); POTASSIUM 3.5 mmol/L (3.5-4.5); TOTAL PROTEIN 7.4 gm/dL (6.2-8.1)
[2022-03-28 12:41] LABS: PROTHROMBIN TIME 11.6 SECONDS (9.7-12.8)
[2022-03-28 13:14] LABS: COLLECTION METHOD CLEAN CATCH
[2022-03-28 13:38] LABS: PH 6 (5-8); URINE APPEARANCE Clear (CLEAR/HAZY); URINE COLOR Yellow (YELLOW); URINE GLUCOSE Negative (NEGATIVE); URINE KETONE Negative (NEGATIVE); URINE PROTEIN(semi-quant) Negative (NEGATIVE)
[2022-03-28 13:39] LABS: URINE BLOOD 2+ (NEGATIVE); URINE NITRATE Negative (NEGATIVE); URINE UROBILINOGEN Negative (NEGATIVE)
[2022-03-28 13:40] LABS: SQUAMOUS EPITHELIAL 0-2 /hpf (0-10); URINE BACTERIA None Seen /hpf (NONE SEEN); URINE RBC 0-2 /hpf (0-2)
[2022-03-28 16:00] VITALS: BP 137/81; PULSE 85; TEMP 97.8
--- NOTE | 2022-03-28 16:19 | NUR ---
steel worker contacted patient's daughter Frida after receiving consult and notification that she was wanting to speak with me. Frida states that she is concerned with her father alcohol intake. Reports that due to the patient's alcohol intake, he is not eating or drinking water. She "thinks" he is able to cook but "just doesn't do it". She states that the patient is not keeping himself or his home up. He does have pedigree tracer services from [facility] x2 week. Patient has had home health in the past but Frida does not think he currently has any services. Her biggest fear is her father getting to intoxicated and falling down the stairs. Frida states that her mother (the patient's ) "a few" years ago and she has been having to take care of him since. She states that the patient did rehab in the past but it has been 20+ yrs ago. He does not use illicit drugs. PCP is Dr. Rollins and he utilizes [facility]. He does not use any DME to assist with mobility. Frida is his only child and established legal next of kin.
--- NOTE | 2022-03-28 17:30 | NUR ---
PT TRANSFERED TO ROOM FROM ER. PT LAYING SUPINE IN BED ON ROOM AIR. PT STATES NO PAIN AT THIS TIME. PT IS A&O X4. PT HAS MULTIPLE ABRASIONS TO HEAD/FACE. PT STATES HE NEEDS TO USE BATHROOM AND WAS ASSITED VIA STANDBY ASSIST TO BATHROOM. PT HAD STEADY GAIT AD DONE VERY WELL TO AND FROM BATHROOM. PT STATES THAT HE DRINK A 6PACK/DAY AND HIS LAST DRINK WAS THIS AM. STATES HE HAD ABOUT 3-4 CANS OF BEER. PT STATES NO CONCERNS/NEEDS AT THIS TIME. CALL LIGHT IS WITHIN REACH.
[2022-03-28 17:48] VITALS: BP 137/81; PULSE 85; TEMP 97.8
--- NOTE | 2022-03-28 20:30 | NUR ---
Initial shift assessment done- alert/oriented, cooperative,VSS, denies pain, Tele on, denies need for a snack tonight- Up to bathroom with assist- fairly steady on feet- understands is fall risk so bed alarm is on-- states he will call with the call light-
[2022-03-28 20:54] VITALS: BP 149/87; PULSE 89; TEMP 99
[2022-03-29] VITALS (11 sets, daily range): BP systolic 139–164; BP diastolic 78–93; PULSE 85–107; TEMP 98.1–99.8
--- NOTE | 2022-03-29 03:45 | NUR ---
Not sleeping at all, having tremors hands- Teresa COMBS called- was started on CIWA protocol, Up to bathroom with assist, also was started on IV fluids during the night, NS with 20KCL at 125cc/hr.
--- NOTE | 2022-03-29 05:49 | NUR ---
States Valium has helped him feel calmer and get some sleep- resting now
[2022-03-29 06:58] LABS: BASO # 0.1 K/mm3 (0.0-0.2); BASO % 1.3 % (0.0-2.0); EOS % 0.4 % (0.0-4.0); GRAN % 73.2 % (42.2-75.2); LYMPH # 0.7 K/mm3 (1.2-3.4); LYMPH % 12.2 % (20.0-51.0); MEAN PLATELET VOLUME 10.6 fl (7.4-10.4); MONO # 0.7 K/mm3 (0.1-0.6); MONO % 12.7 % (1.7-9.3); PLATELET COUNT 79 K/mm3 (130-400); REDCELL DISTRIBUTION WIDTH-CV 12.8 % (11.5-14.5)
[2022-03-29 07:19] LABS: CALCIUM 8.6 mg/dL (8.4-10.2); CREATININE, serum 0.54 mg/dL (0.72-1.25); MAGNESIUM 1.7 mg/dL (1.6-2.6); POTASSIUM 3.1 mmol/L (3.5-4.5)
[2022-03-29 07:50] LABS: HEMOGLOBIN 13.1 g/dl (13.5-18.0); MEAN CORPUSCULAR HEMOGLOBIN 35 pg (27-31); RED BLOOD COUNT 3.72 M/mm3 (4.20-5.60)
[2022-03-29 07:51] LABS: HEMATOCRIT 37.4 % (42.0-52.0); MEAN CELL VOLUME 101 fl (80.0-100.0); MEAN CORPUSCULAR HGB CONC 35 g/dl (33.0-37.0)
--- NOTE | 2022-03-29 09:00 | NUR ---
PT LAYING SUPINE IN BED ON ROOM AIR. PT IS A&O X4. PT DISPLAYS TREMORS AND IS ANXIOUS. PT STATES THAT HE IS NOT HAVING ANY PAIN/DISCOMFORT AT THIS TIME. "I JUST WANT TO GO HOME." PT IS HAVING DIARRHEA AND WAS REPORTED TO . PT STATES NO NEEDS/CONCERNS AT THIS TIME. PT WAS GIVEN A WATER PITCHER AND ENCOURAGED TO DRINK FLUIDS. PT STATES NO N/V AT THIS TIME. BED ALARM IS ON AND CALL LIGHT IS WITHIN REACH.
--- NOTE | 2022-03-29 14:46 | NUR ---
Electrician Journeyman Wireman met with patient to discuss discharge planning. Patient states he plans to return home at time of discharge. ROSA discussed Home Health services with patient who advised he may consider this but wants to think about it. ROSA addressed patient's alcohol use and he advised he's been cutting back how much he drinks but advised he still drinks daily. ROSA offered alcohol resources to patient and patient declined. ROSA provided print out of resources. ROSA contacted Frida and provided the above update. Frida is very worried about patient's safety at home and advised she tries to get patient to eat as much as she can. Frida would like to see patient have HH services again and requested [facility] as patient has used them before. ROSA advised Frida that she would send referral, however patient will have to agree to let HH into the home. Frida verbalized understanding and stated she's just trying to help patient. ROSA emailed Liliana Financial Counselor to inquire if patient was eligible for Medicare. ROSA also made report to Adult Protective Services (intake#[id number]) as patient presented to ED intoxicated and malnourished after a fall. It was reported patient was down in his garage all night.
--- NOTE | 2022-03-29 15:08 | NUR ---
Rola: No taoist preference Situation: Communications Strategist stopped by room on rounds Background: PT was resting and content Assessment: Pt appreciated the visit Recommendation: Communications Strategist will follow up as needed
--- NOTE | 2022-03-29 18:32 | NUR ---
PT LAYING SUPINE IN BED ON ROOM AIR. PT WAS ASSISTED TO BATHROOM AND RETURNED TO BED. PT STATES THAT HE IS NOT HAVING ANY PAIN/DISCOMFORT AT THIS TIME. PT IS HAVING TREMORS. PT STATES NO NEEDS/CONCERNS AT THIS TIME. BED ALARM IS ON. CALL LIGHT IS WITHIN REACH.
--- NOTE | 2022-03-29 20:49 | NUR ---
PT LAYING IN BED RESTING QUIETLY. PT NOTED TO HAVE DIFFUSE BRUISING TO LEFT ARM, LEFT LEG, AND FACE AND RIGHT CALF. LACERATION TO LEFT SIDE OF FOREHEAD. PT DENIES ANY PAIN AT THIS TIME. NOTED TO HAVE CLAMMY PALMS AND MILD TREMORS. CIWA SCORE OF 5. 5 MG PO DIAZEPAM GIVEN ADMINISTERED. WILL CONTINUE TO MONITOR.
[2022-03-30] VITALS (13 sets, daily range): BP systolic 123–166; BP diastolic 81–111; PULSE 86–115; TEMP 97.5–98.9
[2022-03-30 06:25] LABS: BASO # 0.1 K/mm3 (0.0-0.2); EOS # 0.2 K/mm3 (0.0-0.7); EOS % 2.9 % (0.0-4.0); GRAN # 3.5 K/mm3 (1.4-6.5); GRAN % 58.6 % (42.2-75.2); HEMATOCRIT 38.4 % (42.0-52.0); HEMOGLOBIN 14.1 g/dl (13.5-18.0); LYMPH # 1.3 K/mm3 (1.2-3.4); LYMPH % 22.6 % (20.0-51.0); MEAN CELL VOLUME 104 fl (80.0-100.0); MEAN CORPUSCULAR HEMOGLOBIN 38 pg (27-31); MEAN CORPUSCULAR HGB CONC 37 g/dl (33.0-37.0); MONO # 0.9 K/mm3 (0.1-0.6); MONO % 14.6 % (1.7-9.3); PLATELET COUNT 81 K/mm3 (130-400); RED BLOOD COUNT 3.69 M/mm3 (4.20-5.60); REDCELL DISTRIBUTION WIDTH-CV 13.1 % (11.5-14.5)
[2022-03-30 06:37] LABS: CALCIUM 10.1 mg/dL (8.4-10.2); CREATININE, serum 0.6 mg/dL (0.72-1.25); POTASSIUM 4.1 mmol/L (3.5-4.5)
--- NOTE | 2022-03-30 09:04 | NUR ---
PATIENT VERY CONFUSED, DISORIENTED, NOT AGITATED. FULL BODY TREMORS. UNAWARE OF LOCATION AND SITUATION. BELIEVES HE IS AT HOME AND PREPARING FOR BED. PATIENT HAS UNCONTROLLED BODY SPASMS DURING BED BATH AND LINEN CHANGE. EXTREMITIES HAVE MULTIPULE LACERATIONS, SKIN TEARS AND BRUISES. SOME THAT ARE OPENING AND BLEEDING UPON BUMPING IN BED. NO VERBALE COMPLAINTS OF PAIN, NO NOTICEABLE NON-VERBALE COMPLAINTS OF PAIN. STILL ON CIWA PROTOCOLS. WILL CONTINUE TO MONITOR.
--- NOTE | 2022-03-30 10:58 | NUR ---
WHEN ATTEMPTING TO GIVE PATIENT MORNING MEDS, PATIENT PROCEDDED TO ATTEMT TO CHEW MEDS, FOLLOWED BY INTAKING A LARGE AMOUNT OF WATER. WHICH CAUSED PATIENT TO CHOKE ON MEDS AND ASPIRATE. PATIENT VOMITED, AND HAD A FEW MOMENTS OF OBSTRUCTED AIRWAY. SUCTION USED TO CLEAR MOUTH AND BACK OF THROAT. PATIENT CLEARED AIRWAY, OXYGEN STATUS ABOVE 90%, PATIENT TALKING AND SWALLOWING APPROPRIATELY. PATIENT NPO PER NURSING JUDGEMENT UNTIL PROVIDER EVALUATION.
--- NOTE | 2022-03-30 18:58 | NUR ---
PATIENT RESTING IN BED. VERY ACTIVE IN BED TODAY. CIWA SCORES BETWEEN 9-14 THROUGH OUT THE SHIFT. NO VOCAL COMPLAINTS OF PAIN. PATIENT REPEATEDY ASKING TO GO TO THE STORE FOR BEER AND CIGARETTES. PATIENT IN BILATERAL MITTS TO PREVENT PULLING AT NESBITT AND IV. NPO DUE TO ASPIRATION RISK. THICK WET COUGH WITH LUNDBERG TO YELLOW COPIOUS SECREATIONS. RED-TINGED URINE, NO BOWEL MOVEMENT THIS SHIFT. 2 BATHS AND 3 FULL BED CHANGES.
[2022-03-31] VITALS (10 sets, daily range): BP systolic 122–147; BP diastolic 63–98; PULSE 86–110; TEMP 97.2–98.6
--- NOTE | 2022-03-31 01:06 | NUR ---
Pt alert to speech. Drowsy and confused. Pt hallucinating and thinks he is at home. Pt has not attempted to get OOB yet this evening, but forgets limitations and kicks feet over the side of the bed. CIWA and ETOH detox protocols being enfored. Q2 VS assessed. Pt scoring between 7-9 this evening, valium administered per orders and per protocol. IV D5 1/2 NS continuing. Pt NPO at this time. Pt has a productive cough, that is waddell and thin in consistency. Palomino catheter is in place. Urine is red. Noted some dried blood around the pt's catheter site. Catheter care provided. Bag below pt, no kinks in tubing. Pt has many bruises on the left side of his body. Pt also has a skin tear on the left and right arms, both covered with a dressing. Pt also has a few bruises on his face and forehead. Under eyes are bruised as well. Pt currently has mitts on hands, tolerating well. VS currently stable. Pt's HR running tachy. BP runs between WNL and elevated. Pt goes in and out of being drowsy and moving around in the bed. Shift assessment performed. Medications administered per orders and education provided. PO medications held at this time. Fall precautions in place. Pt denies pain. No nausea or vomiting this evening. Pt does not report any questions at this time. Bed low and locked, call pagan within reach, no new concerns at this time.
[2022-03-31 06:08] LABS: CALCIUM 9.5 mg/dL (8.4-10.2); CREATININE, serum 0.56 mg/dL (0.72-1.25); POTASSIUM 3.4 mmol/L (3.5-4.5)
[2022-03-31 06:16] LABS: BASO % 0.4 % (0.0-2.0); EOS # 0.2 K/mm3 (0.0-0.7); GRAN # 5.4 K/mm3 (1.4-6.5); GRAN % 67.9 % (42.2-75.2); HEMATOCRIT 39.1 % (42.0-52.0); HEMOGLOBIN 13.9 g/dl (13.5-18.0); LYMPH # 1.3 K/mm3 (1.2-3.4); LYMPH % 16.4 % (20.0-51.0); MEAN CELL VOLUME 100 fl (80.0-100.0); MEAN CORPUSCULAR HEMOGLOBIN 35 pg (27-31); MEAN CORPUSCULAR HGB CONC 36 g/dl (33.0-37.0); MEAN PLATELET VOLUME 11.7 fl (7.4-10.4); MONO % 12.5 % (1.7-9.3); PLATELET COUNT 86 K/mm3 (130-400); RED BLOOD COUNT 3.93 M/mm3 (4.20-5.60); REDCELL DISTRIBUTION WIDTH-CV 11.8 % (11.5-14.5)
--- NOTE | 2022-03-31 07:28 | NUR ---
No adverse events overnight. Pt alert, but confused. Continues to put feet over side of bed, but does not attempt to get OOB. In out and out of drowsiness. Follows commands. CIWA and ETOH protocols followed. Pt scoring between 7-9 overnight. IV fluids continuing. Pt remains NPO. Palomino catheter remains in place, with red urine present. Fall precautions in place. Bed low and locked, call pagan within reach. No new concerns at this time.
--- NOTE | 2022-03-31 11:13 | NUR ---
Vika RN requests case management re-assess patient for intake and discharge planning, noting at the time of his initial assessment his RENITA was [phone]. Nursing indicating concern for the validity of the assessment. Per RN, patient is increasinly oriented, but not yet fully oriented. Social Work continues to follow, with recommendation for re-assessment in AM, for intake and discharge planning.
--- NOTE | 2022-03-31 12:28 | NUR ---
PATIENT MORE ALERT TODAY. INTERMITTENT ORIENTATION. AWARE OF LOCATION, AND SITUATION ON OCCASION, AWARE OF DAUGHTER'S WEDDING IN A FEW WEEKS. PATIENT INDWELLING CATHETER DRAINING RED TINGED URINE, SOME DRIED BLOOD SURROUNDING PENIS. PATIENT IV SITE INFILTRATED. BOTH LEFT FOREARM AND PLACED RIGHT UPPER ARM INFILTRATED. NEW SITES PARALLEL RIGHT FOREARM. REPLACEING MAG AND POTASSIUM. PATIENT ON CONTINUOUS FLUIDS. PATIENT IN BILATERAL MITTS TO PREVENT PULLING ON IV AND NESBITT. GIVING PATIENT SMALL SIPS OF WATER TO ATTEMPT SWALLOWING REFLEX, OF THIS MORNING PATIENT STILL HAVING DIFFICULTY CLEARING THROAT, WITH DELAYED COUGHING. PATIENT HAVING MUSCLE CONTRACTIONS PREVENTING RELAXATION OF WRISTS AND NECK, PATIENT EXPERIENCES DIFFICULTY TILTING HEAD FORWARD (CHIN TO CHEST). BED ALARMS ON, FALL PRECUATIONS IN PLACE. CIWA PRECUATIONS STILL IN PLACE.
--- NOTE | 2022-03-31 18:34 | NUR ---
PATIENT CALM MOST OF THE DAY, CIWA SCORES 2-3, UNTIL 1800 SCORE JUMPED TO 7. GIVEN 5MG OF IV VALIUM. PATIENT PARTIALLY ORIENTED, MORE AGITATED AND ANXIOUS. PATIENT HAS DELAYED ASPIRATION SIGNS AFTER FEEDING AND ENCOURAGING CLEAR LIQUIDS. WET PRODUCTIVE COUGH, WITH DIFFICULTY CLEARING SECREATIONS. PATIENT STRUGGLES FOLLOWING COMMANDS TO TILL CHIN TO CHEST. SPEECH EVAL PLANNED TOMORROW.
[2022-04-01] VITALS (11 sets, daily range): BP systolic 113–146; BP diastolic 70–98; PULSE 71–97; TEMP 97.5–98.7
[2022-04-01 07:27] LABS: CALCIUM 9.2 mg/dL (8.4-10.2); CREATININE, serum 0.5 mg/dL (0.72-1.25); MAGNESIUM 1.6 mg/dL (1.6-2.6); POTASSIUM 3.5 mmol/L (3.5-4.5)
--- NOTE | 2022-04-01 07:39 | NUR ---
CIWA scores 3-7 this shift, valium given IV x2, pt alert and oriented x2, frequently asks to go upstairs so he can go to bed. bed exit alarms on, pt in room close to desk. IVF infusing per PIV @60cc/hr. dressing to left elbow skin tear changed this am. brasher patent/secure with small amt of bloody drainage around insertion site. oral care provided this am, NPO until evaluated by speech therapy this am.
--- NOTE | 2022-04-01 13:50 | NUR ---
Patient has moments of full clarity, followed by moments of confusion and hallucination. Patient will believe that they are at home and need to leave for errands, cigarettes, and missing items, or to feed his cats. Patient not tolerating thins, struggles with swallowing medications with nectar thick liquids. Very little urinary output. Urine tea colored. Thick tenacious cough, with waddell secreations. Patient attempts to get out of bed on occasion. B/L mitts on. Still on CIWA precautions.
--- NOTE | 2022-04-01 14:21 | NUR ---
Chief Pilot collaborated with Hospitalist who advised post acute rehab may be needed for patient and put in IPR screening. SW contacted Татьяна, IPR Director to discuss referral. Patient has been to IPR in the past.
[2022-04-02] VITALS (11 sets, daily range): BP systolic 123–154; BP diastolic 63–98; PULSE 72–94; TEMP 97.5–98.6
--- NOTE | 2022-04-02 02:41 | NUR ---
Pt alert to speech. Drowsy this evening and confused. Pt tells me that "I havent had sleep since 6 am. The cats are bothering me, because her boyfriend let the cats out". Pt denies pain. Fall precautions in place. Swallowing precautions in place. Central line noted in the ZOILA. Pt is able to tolerate pills when crushed and placed in jello. Pt has a junky sounding cough with a small amount of sputum. CIWA protocol and q2hr vital signs continuing. Pt scoring 3-4 tonight. Pt forgets limitations, but does not attempt to get OOB. Soft mittens remain on both hands. Frequent nourishment offered to the pt. Palomino catheter in place. Urine is tea colored. VS stable. HR running in the 70's. Afebrile. No nausea or vomiting. monitor technician on. Shift assessment performed. Medications administered per orders and education provided. Continuing with detox protocol PO ativan prn. Pt has bruising noted in multiple areas on the face/eyes/forehead. Bruising/scabbing noted on all 4 extremities. No edema noted. Pt has a skin tear on the left and right arms, covered with dressings. Pt does not report any questions at this time. Bed low and locked, call pagan within reach. No concerns at this time.
--- NOTE | 2022-04-02 05:32 | NUR ---
PT FELL AT 0530. PT GOT OOB WITHOUT CALLING. BED ALARM WAS ON AND BED WAS LOCKED AND IN LOW POSITION. PT HAD YELLOW SOCKS ON. PT'S BED ALARM WENT OFF AND I REPORTED TO THE PT'S ROOM IMMEDIATELY. PT WAS SITTING ON THE FLOOR TO THE RIGHT OF THE BED. PT STATES "I WAS GOING DOWNSTAIRS TO GET A CIGARETTE AND FELL ON MY BUTT". PT WAS EDUCATED AND ATTEMPTED TO REORIENT PT. EDUCATED PT ON PURPOSE TO CALL BEFORE GETTING OOB. NOTIFIED PARTH AMOS OF THE FALL IMMEDIATELY AFTER. PT'S VS WERE ALSO ASSESSED IMMEDIATELY AND ARE STABLE. PT HAS NO BLEEDING OR NEWLY FOUND BRUISING/SKIN ABNORMALITIES AFTER THE FALL. PARTH AMOS GAVE NO NEW ORDERS AT THIS TIME. I WILL NOTIFY THE FAMILY OF THE PT'S FALL. NO OTHER CHANGES AT THIS TIME.
--- NOTE | 2022-04-02 05:56 | NUR ---
NOTIFIED PT'S DAUGHTER, DEIRDRE OF THE PT'S FALL. NO OTHER CHANGES AT THIS TIME.
[2022-04-02 06:18] LABS: BASO # 0.1 K/mm3 (0.0-0.2); BASO % 0.7 % (0.0-2.0); EOS # 0.2 K/mm3 (0.0-0.7); EOS % 3.4 % (0.0-4.0); GRAN # 3.7 K/mm3 (1.4-6.5); GRAN % 54.2 % (42.2-75.2); HEMATOCRIT 37.2 % (42.0-52.0); HEMOGLOBIN 13.1 g/dl (13.5-18.0); LYMPH # 1.6 K/mm3 (1.2-3.4); MEAN CORPUSCULAR HEMOGLOBIN 38 pg (27-31); MEAN CORPUSCULAR HGB CONC 35 g/dl (33.0-37.0); MEAN PLATELET VOLUME 10.8 fl (7.4-10.4); MONO # 1.3 K/mm3 (0.1-0.6); MONO % 18.3 % (1.7-9.3); PLATELET COUNT 131 K/mm3 (130-400); RED BLOOD COUNT 3.49 M/mm3 (4.20-5.60); REDCELL DISTRIBUTION WIDTH-CV 11.9 % (11.5-14.5)
[2022-04-02 06:27] LABS: MEAN CELL VOLUME 107 fl (80.0-100.0)
[2022-04-02 06:48] LABS: ALBUMIN 3.2 gm/dL (3.4-4.8); BILIRUBIN,TOTAL 2.3 mg/dL (0.2-1.2); CALCIUM 9.1 mg/dL (8.4-10.2); CREATININE, serum 0.5 mg/dL (0.72-1.25); MAGNESIUM 1.8 mg/dL (1.6-2.6); TOTAL PROTEIN 7.1 gm/dL (6.2-8.1)
--- NOTE | 2022-04-02 07:26 | NUR ---
PT HAD A FALL THIS MORNING AT 0530 (SEE PREVIOUS NOTE). PT IS ALERT, DISORIENTED/CONFUSED. THINKS HE IS AT HOME WITH HIS "CATS". PT DENIES PAIN. IV FLUIDS CONTINUING. FALL PRECAUTIONS REMAIN IN PLACE AND POST-FALL DOCUMENTATION WAS FILLED OUT. FIELD MERCHANDISER ON. VS STABLE. SWALLOWING PRECAUTIONS IN PLACE. CIWA PROTOCOL FOLLOWED PER ORDERS. PT EDUCATION AND RE-ORIENTATION PROVIDED FREQUENTLY. NESBITT REMAINS IN PLACE. 500 ML OF TEA-COLORED URINE EMPTIED FROM NESBITT. BED LOW AND LOCKED, CALL COLE WITHIN REACH. NO NEW CONCERNS AT THIS TIME.
[2022-04-02 09:03] LABS: PROTHROMBIN TIME 11.5 SECONDS (9.7-12.8)
--- NOTE | 2022-04-02 22:42 | NUR ---
Pt is drowsy this evening, but alert to speech when awoken. Pt goes in and out of confusion. Pt appeared to think he was at home this evening. Pt denies pain. CIWA protocol in place and continuing per orders. Fall precautions in place, pt re-oriented frequently and education frequently to call staff before getting OOB. Pt has not attempted to get OOB yet this evening, but does continue to kick his feet over the side rail of the bed. Pt frequently repositioned by staff. Palomino catheter remains in place. Catheter care provided. Palomino bag below pt, no kinks in tubing. Urine is tea-colored. Central line noted in pt's ZOILA. Dressing c/d/i. Pt continuing with prn per CIWA scoring protocol and PO vitamins. Pt continues to have a junky-sounding cough. Pt tolerated pills crushed this evening in a small spoonful of jello. Swallowing precautions in place. Shift assessment performed. Medications administered per orders and educations provided. VS stable. On room air. Soft mitts remain on pt's hands. Frequent nourishment offered to pt. Pt does not report any questions at this time. Bed low and locked, call pagan within reach. No concerns at this time.
[2022-04-03] VITALS (13 sets, daily range): BP systolic 118–146; BP diastolic 68–733; PULSE 71–107; TEMP 97.5–98.5
--- NOTE | 2022-04-03 05:17 | NUR ---
No adverse events overnight. Pt alert to speech, continues to be drowsy. Slept majority of the night. CIWA protocol and q2hr vital signs continued per orders. Palomino catheter remains in place. Urine is tea-colored. 300 ml emptied overnight. Fall precautions remain place for pt. Pt frequently re-oriented and re-educated on fall precautions. Pt tolerating nectar-thick liquids with a tsp. No choking/aspiration overnight when administered crushed medications in nectar thick liquid. Pt continues to have productive cough. VS stable. Pt denies pain. Bed low and locked, call pagan within reach. No new concerns at this time.
--- NOTE | 2022-04-03 09:00 | NUR ---
Patient is resting in bed, cooperative to eat and take medications. Follows comands. VSS. Catheter brasher in place, jhoana clear output. Assessment completed, no other needs at this time. Bed alarm on. Continue monitoring.
[2022-04-03 09:08] LABS: CALCIUM 8.7 mg/dL (8.4-10.2); CREATININE, serum 0.45 mg/dL (0.72-1.25); POTASSIUM 3.2 mmol/L (3.5-4.5)
--- NOTE | 2022-04-03 19:32 | NUR ---
Patient is resting in bed, continuous confused and forgetful. Palomino in place. Cooperative to take medications. Report given to night RN.
--- NOTE | 2022-04-03 23:20 | NUR ---
Pt more alert this evening. Stil disoriented. Easily re-oriented. Attempted to get OOB without calling once this evening. Bed alarm sounded off and I immediately reported to the room to find the pt sitting up on the side of the bed. Re-oriented pt and re-educated pt on fall precautions and to call for help before getting OOB. Pt was repositioned, no attempts since but pt does continue to put extremities sideways off of the bed. Pt continues to reach over to bedside table. When offered to assist, pt he denies he needs anything. Mittens remain on pt's hands. Frequent nourishment offered to pt. Pt follows commands. CIWA protocol and q2hr VS continued per orders. Pt tolerated PO medications crushed in nectar thick liquid with no coughing or aspiration noted. Pt continues to have a junky cough. Palomino catheter in place. Bag below pt, tubing free of kinks. Catheter care provided. Central line dressing in ZOILA C/D/I. VS stable. On room air. Afebrile. Shift assessment performed. Medications administered per orders and education provided. Pt has bruising and scabbing on the face, BLE, and BUE. Skin tears on both elbows bilaterally. Skin tears are covered in the dressing. Pt calm and cooperative. Goes in and out of confusion. Bed low and locked, call pagan within reach. No new concerns at this time.
[2022-04-04] VITALS (10 sets, daily range): BP systolic 125–152; BP diastolic 76–99; PULSE 76–104; TEMP 97.6–98.3
--- NOTE | 2022-04-04 04:23 | NUR ---
CHANGED PT'S DRESSING'S ON THE SKIN TEARS ON THE RIGHT AND LEFT ELBOW'S. NEW DRESSINGS DATED AND TIME WRITTEN. DRESSINGS NOW C/D/I BILATERALLY.
--- NOTE | 2022-04-04 05:17 | NUR ---
No adverse events overnight. Pt alert, but confused. Stated overnight that he was at a yard sale. Pt frequently re-oriented and re-educated pt. Pt did attempted to sit up and get OOB without assistance a few times overnight. Pt was re-oriented. Fall precautions remain in place. Pt tolerated PO with no aspiration noted. Palomino had 450 ml out overnight of tea-colored urine. VS stable. On room air. Dressings were changed on pt's elbows bilaterally. Pt calm and follows commands. CIWA protocol and q2hr VS continued overnight. Prn ativan administered based on CIWA scores. Mittens remain on with frequent nourishment offered. Bed low and locked, call pagan within reach. No new concerns at this time.
[2022-04-04 06:51] LABS: HEMOGLOBIN 11.5 g/dl (13.5-18.0); MEAN CELL VOLUME 106 fl (80.0-100.0); MEAN CORPUSCULAR HEMOGLOBIN 38 pg (27-31); MEAN CORPUSCULAR HGB CONC 36 g/dl (33.0-37.0); MEAN PLATELET VOLUME 10.4 fl (7.4-10.4); PLATELET COUNT 173 K/mm3 (130-400); RED BLOOD COUNT 3.02 M/mm3 (4.20-5.60); REDCELL DISTRIBUTION WIDTH-CV 12.4 % (11.5-14.5)
[2022-04-04 07:10] LABS: ALBUMIN 2.9 gm/dL (3.4-4.8); BILIRUBIN,TOTAL 1.4 mg/dL (0.2-1.2); CREATININE, serum 0.5 mg/dL (0.72-1.25); POTASSIUM 3.3 mmol/L (3.5-4.5); TOTAL PROTEIN 6.5 gm/dL (6.2-8.1)
[2022-04-04 07:25] LABS: BAND 3 % (0-10); EOSINOPHIL 4 % (0-4); LYMPHOCYTE 23 % (20.0-51.0); NEUTROPHILS 55 % (42.0-75.2); PLATELET ESTIMATE NORMAL (NORMAL)
--- NOTE | 2022-04-04 08:54 | NUR ---
Patient is resting in bed, alert but disoriented, forgetful. HR in 100's HTN 130-150 SBP. Assessment completed, cooperative to take medications. No other needs at this time. Bed alarm on.
--- NOTE | 2022-04-04 13:03 | NUR ---
The patient is still going through alcohol withdrawals and is on the CIWA protocol. ROSA staffed with Татьяна from [facility]. Татьяна reports that they are following the patient.
--- NOTE | 2022-04-04 18:25 | NUR ---
Patient HR and BP have being sasha scoring 5 -7 ciwa. Cath brasher was discontinued. NS running at 100 ml/hr. More talkative and active but still confused. Report will be given to night RN.
--- NOTE | 2022-04-04 19:00 | NUR ---
PT LAYING IN BED AT THIS TIME. STATES HE IS READY FOR BED. TURNED OFF HIS TV, AND THE PATIENT FELL ASLEEP. DENIES ANY PAIN. NO HALLUNCINATIONS, TREMORS OR ANXIETY AT THIS TIME. WILL CONTINUE TO MONITOR.
--- NOTE | 2022-04-04 20:00 | NUR ---
PT IS CURRENTLY ALERT AND ORIENTED TO PERSON, PLACE, TIME. HE SEEMS A BIT DROWSY, BUT THIS COULD BE IN PART DUE TO THE MEDICATIONS HE HAS BEEN RECEIVING. WILL CONTACT THE PROVIDER TO DISCUSS THE CIWA PROTOCOL. THE PATIENT HAS SCORED A 0 AT THIS TIME, HOWEVER THE PATIENT WAS REPORTED TO BE SCORING 5-7 DURING THE DAY. THE PATIENT DID GET UP TO GO TO THE BATHROOM, WAS ABLE TO VOID WITHOUT DIFFICULTY. PT WAS UNSTEADY ON HIS FEET, NEEDED THE WALKER AND ASSISTANCE TO THE BATHROOM. NO OTHER CONCERNS AT THIS TIME, WILL CONTINUE TO MONITER THROUGH THE NIGHT.
[2022-04-05 00:22] VITALS: BP 165/91; PULSE 90; TEMP 97.9
[2022-04-05 07:22] VITALS: BP 133/77; PULSE 88; TEMP 97.9
--- NOTE | 2022-04-05 08:30 | NUR ---
Patient is resting in bed, alert but partially oriented. Receiving NS 100ML/HR. Had his breakfast. Continues with weakness. Cooperative to take medications. Assessment completed, no other needs at this time. Call light within reach, chair alarm on.
[2022-04-05 11:11] VITALS: BP 112/65; PULSE 82; TEMP 97.6
[2022-04-05 15:06] VITALS: BP 123/73; PULSE 94; TEMP 97.9
--- NOTE | 2022-04-05 18:57 | NUR ---
Patient has been more active today. He still needs some help to have his meals but tries to eat by himself. He calls for help to go to the restroom. Continuous very weak. He is receiving NS 100ML/HR. HR and BP improved. Report will be given to night RN.
[2022-04-05 19:37] VITALS: BP 125/76; PULSE 92; TEMP 98.3
[2022-04-05 23:40] VITALS: BP 120/67; PULSE 82; TEMP 97.3
[2022-04-06] VITALS (7 sets, daily range): BP systolic 118–158; BP diastolic 74–91; PULSE 77–96; TEMP 97.8–98.1
[2022-04-06 07:17] LABS: POTASSIUM 3.7 mmol/L (3.5-4.5)
[2022-04-06 08:56] LABS: CALCIUM 9.4 mg/dL (8.4-10.2); CREATININE, serum 0.5 mg/dL (0.72-1.25)
--- NOTE | 2022-04-06 11:20 | NUR ---
Shift assessment preformed. Scheduled medications given. VSS. Patient A&O. Patient continues to work with PT. Weakness with ambulation noted. Patient denies any further pain, discomfort, soa, or further needs at this time. Call light in reach. Fall precautions in place.
--- NOTE | 2022-04-06 14:19 | NUR ---
[facility] PROTOCOL DC'D PER DR MAGAÑA.
--- NOTE | 2022-04-06 18:00 | NUR ---
Patient has had an ok day. VSS. Patient A&O. Patient c/o sore neck, hot pack placed on sore site and patient states that discomfort has improved. Patient denies any further pain, discomfort, SOA, or further needs at this time. Call light in reach. Fall precautions in place.
--- NOTE | 2022-04-06 18:59 | NUR ---
PT LAYING IN BED AT THIS TIME. C/O SOME SLIGHT NECK PAIN, DENIES NEEDS OF ANYTHING ELSE. NO OTHER NEEDS AT THIS TIME. ASSESSMENT COMPLETED.
--- NOTE | 2022-04-07 00:27 | NUR ---
PT LAYING IN BED; HE HAS GOTTEN UP SEVERAL TIMES. STATES TO US THAT HE IS IN HIS GARAGE. THIS IS UNCHANGED FROM THE NIGHTS PRIOR. DURING NIGHT TIME HE DOES BECOME MORE CONFUSED. PT REORIENTED, AND HE IMMEDIATELY LAYS BACK DOWN IN BED. NO OTHER CONCERNS.
[2022-04-07 03:47] VITALS: BP 137/70; PULSE 99; TEMP 98
[2022-04-07 07:22] VITALS: BP 145/82; PULSE 87; TEMP 97.6
[2022-04-07 07:41] LABS: BASO # 0.1 K/mm3 (0.0-0.2); BASO % 1.7 % (0.0-2.0); EOS # 0.2 K/mm3 (0.0-0.7); EOS % 3.5 % (0.0-4.0); GRAN # 2.7 K/mm3 (1.4-6.5); HEMOGLOBIN 11.1 g/dl (13.5-18.0); LYMPH # 1.7 K/mm3 (1.2-3.4); LYMPH % 28.7 % (20.0-51.0); MEAN CELL VOLUME 105 fl (80.0-100.0); MEAN CORPUSCULAR HEMOGLOBIN 36 pg (27-31); MEAN CORPUSCULAR HGB CONC 35 g/dl (33.0-37.0); MEAN PLATELET VOLUME 9.7 fl (7.4-10.4); MONO # 1.2 K/mm3 (0.1-0.6); MONO % 19.8 % (1.7-9.3); PLATELET COUNT 292 K/mm3 (130-400); RED BLOOD COUNT 3.05 M/mm3 (4.20-5.60); REDCELL DISTRIBUTION WIDTH-CV 11.8 % (11.5-14.5)
[2022-04-07 07:57] LABS: CALCIUM 9.1 mg/dL (8.4-10.2); CREATININE, serum 0.48 mg/dL (0.72-1.25); POTASSIUM 3.3 mmol/L (3.5-4.5)
--- NOTE | 2022-04-07 08:30 | NUR ---
Pt lying down in bed. Alert but confused eating his breakfast very pleasantly. VSS. Pt stated feeling some pain on his neck. Warm blanket was offered and accepted. He denied to take any pain medication. Central line on right upperarm remains CDI. No edema or redness. Fall precautions remains in place. Call light within reach.
[2022-04-07 11:53] VITALS: BP 124/76; PULSE 88; TEMP 99
[2022-04-07 16:15] VITALS: BP 144/85; PULSE 97; TEMP 98.3
--- NOTE | 2022-04-07 17:56 | NUR ---
Pt lying down in bed. Alert but remains confused. All medications administered. Family member at bedside. Central line remains CDI. No redness or edema. Fluids running at 100ml/hr. Pt states feeling a little bit of pain on his back. Warm blanket was requested from him to try and see if that could help him. Pt doesn't express any other concerns or needs at the time besides his back pain. Call light within reach.
[2022-04-07 19:37] VITALS: BP 143/86; PULSE 95; TEMP 98.6
--- NOTE | 2022-04-07 20:30 | NUR ---
Initial shift assessment done- alert/confused as to situation/not following directions to call for assistance up to bathroom, impulsive and crawling over the one siderail- Up to bathroom with walker and assist, very grateful for any help that we give him, EMILIANO, has PICC line ZOILA with NS at 100cc/hr, bed alarm on- close to nsg station.
[2022-04-07 23:55] VITALS: BP 141/82; PULSE 80; TEMP 98.6
[2022-04-08 04:09] VITALS: BP 105/58; PULSE 70; TEMP 98.5
--- NOTE | 2022-04-08 05:53 | NUR ---
Has been resting for the past 2-3 hours-- otherwise was awake for the beginning of the shift-- up to the bathroom with assist numerous times 6-7 at least- voiding well. No complaints of pain. IV fluids of NS at 100cc/hr.
[2022-04-08 07:51] VITALS: BP 162/82; PULSE 75; TEMP 98
--- NOTE | 2022-04-08 08:00 | NUR ---
Patient is resting in bed, alert and oriented, receiving NS 100 ml/hr and having breakfast. Assessment complted, no other needs at this time, call light within reach.
--- NOTE | 2022-04-08 09:44 | NUR ---
Татьяна with IPR is unable to accept this patient. Per PT, patient is walking 300 feet and they are recommending home with family assist and HH. Patient presented with [email or web address].gov list of HH options.
[2022-04-08] MEDS ORDERED: VALIUM 2MG T2 MG/TAB PO (09:50)
[2022-04-08] MEDS ORDERED: NICODERM C14 MG/PATC TD (09:53)
[2022-04-08 11:09] VITALS: BP 126/80; PULSE 98; TEMP 98.1
--- NOTE | 2022-04-08 13:13 | NUR ---
Patient voices he would like to be established with [facility]. Clinical referral faxed. Phone call made to agency and informed of the patient's discharge. Phone call made to the patients daughter Frida and provided an update to the discharge plan. Frida's biggest concern is the patients safety. She would like PT to work with the patient on stairs as he has a flight of them at home. PT contacted and request made. Frida asks why the patient was not accepted to rehab. Informed her that the patient at this time is walking 300 feet and is to high functioning for the program. She understands but is disappointed. Informed her that the patient chose [facility] and that i have requested for PT/OT and shelter to be ordered. Worked with Frida on ordering the patient a FWW. She voices that she would like it to be sent to [facility]. Singed order for walker sent to [facility]. Phone call received from the patient's sister Dana upset that we are discharging the patient home. Explained to Dana that at this time, when the patient is no intoxicated, he to too functional to our IPR unit. She is understanding but frustrated. Discharge plan: Home with
--- NOTE | 2022-04-08 15:36 | NUR ---
SW met with patient's daughter and patient at bedside. Patient's daughter asks what their options are as far as someone being with him 24/03. I informed them both that their only option is to hire someone privately. List of private duty caregivers provided. Verbalized to them both that Jax is able to function when he is not drinking and stressed the importance of rehab for his health. Drug and Alcohol resource are provided to them. Educated them that at his age, assisted living or equipment operator intermodal yard care would be private pay. Stressed the importance of picking the patient's walker up on their way home.
--- NOTE | 2022-04-08 15:44 | NUR ---
Patient and daughter were provided with discharge information at 1510 hrs. All questions answered. PICC line was discontinued by [facility] staff. Accompanied by family and staff and by wheelchair pt left room.
--- NOTE | 2022-04-08 16:25 | NUR ---
Phone call received from Dana upset that "we sent the patient home and he can't even walk". Educated her that the patient is up and walking with a walker and that our PT did work on stairs with the patient. I educated her that Frida was sent home with resources such as private duty caregivers and alcohol treatment options. I reiterated that when that patient is sober he is able to function and that i stressed the importance of treatment to both him and Frida at the time of discharge. I educated her that i discussed AL/LTC placement options with the patient and his daughter along with the cost of what that would be. Dana is frustrated but understands.
--- NOTE | 2022-04-09 09:31 | NUR ---
farmworkers contacted [facility] and confirmed that they will send a nurse to admit patient today at 1:00. Worker contacted patient's daughter, Frida as she had called. Frida had stayed the night with patient and plans to stay this evening. Frida has called a private duty agency and continues plan to arrange night care for patient. Worker provided education on alcoholism. Frida stated patient has alcohol in the home and that patient did comsume alcohol yesterday. Frida stated that she will be in the home today at 1:00 when home health meets with patient.
--- NOTE | 2022-04-09 14:32 | NUR ---
cinder pit worker spoke with patient's sister, Dana, and offered support as patient's health care needs are difficult.
== END 2022-04-08 15:30 | disposition home health service (06) | DRG 896 ==
LOC: COL.ER 10:56 → MEDICAL 13:38
PROVIDERS: Internal Medicine; Physician Assistant; Student in an Organized Health Care Education/Training Program; ADMIT Student in an Organized Health Care Education/Training Program
PROC: 02HV33Z Insertion of Infusion Device into Superior Vena Cava, Percutaneous Approach (ICD-10-PCS; principal; 2022-04-02)
DX: F10.129 Alcohol abuse with intoxication, unspecified (principal); E43 Unspecified severe protein-calorie malnutrition; E87.1 Hypo-osmolality and hyponatremia; E87.2 Acidosis; F32.A Depression, unspecified; Z91.14 Patient's other noncompliance with medication regimen; F17.210 Nicotine dependence, cigarettes, uncomplicated; Z20.822 Contact with and (suspected) exposure to COVID-19; R53.81 Other malaise; I10 Essential (primary) hypertension; J43.9 Emphysema, unspecified; K76.0 Fatty (change of) liver, not elsewhere classified; Y90.8 Blood alcohol level of 240 mg/100 ml or more; E87.6 Hypokalemia; F10.139 Alcohol abuse with withdrawal, unspecified; R13.10 Dysphagia, unspecified; W18.39XA Other fall on same level, initial encounter; D69.6 Thrombocytopenia, unspecified; S60.512A Abrasion of left hand, initial encounter; Y92.59 Other trade areas as the place of occurrence of the external cause; Y93.89 Activity, other specified; Z68.20 Body mass index [BMI] 20.0-20.9, adult; Z23 Encounter for immunization
CPT/HCPCS: OP; C1751; G0378; J3360; J3411; J3475; J3480; J7030; J7120

== ENCOUNTER 2022-06-10 14:14 | Inpatient (IN) | payer BC ==
[~2022-06-10] VITALS: Ht 172.7 cm; Wt 61.5 kg
[~2022-06-10 14:14] MED LIST changes: +NICODERM C14 MG/PATC TD; +VALIUM 2MG T2 MG/TAB PO
[2022-06-10] MEDS ORDERED: MAG-OX 400400 MG/TAB PO (15:44)
[2022-06-10] MEDS ORDERED: CEPHALEXIN500 M1 PO (15:45)
[2022-06-10] MEDS ORDERED: REMERON30 MG PO (15:46)
[2022-06-10 15:55] VITALS: BP 138/87; PULSE 106; TEMP 98.2
[2022-06-10 17:23] LABS: BASO # 0.1 K/mm3 (0.0-0.2); BASO % 1.7 % (0.0-2.0); EOS # 0.2 K/mm3 (0.0-0.7); GRAN # 2.9 K/mm3 (1.4-6.5); GRAN % 53.9 % (42.2-75.2); HEMOGLOBIN 14.1 g/dl (13.5-18.0); LYMPH # 1.6 K/mm3 (1.2-3.4); LYMPH % 28.8 % (20.0-51.0); MEAN CELL VOLUME 103 fl (80.0-100.0); MEAN CORPUSCULAR HEMOGLOBIN 36 pg (27-31); MEAN CORPUSCULAR HGB CONC 35 g/dl (33.0-37.0); MEAN PLATELET VOLUME 9.3 fl (7.4-10.4); MONO # 0.7 K/mm3 (0.1-0.6); MONO % 12.4 % (1.7-9.3); PLATELET COUNT 103 K/mm3 (130-400); REDCELL DISTRIBUTION WIDTH-CV 13.3 % (11.5-14.5)
[2022-06-10 17:28] LABS: PROTHROMBIN TIME 11.1 SECONDS (9.7-12.8)
[2022-06-10 17:30] LABS: PARTIAL THROMBOPLASTIN TIME 43.2 SECONDS (26.0-37.0)
[2022-06-10 17:43] LABS: ALBUMIN 3.9 gm/dL (3.4-4.8); BILIRUBIN,TOTAL 0.8 mg/dL (0.2-1.2); CREATININE, serum 0.62 mg/dL (0.72-1.25); TOTAL PROTEIN 7.9 gm/dL (6.2-8.1)
--- NOTE | 2022-06-10 18:30 | NUR ---
PT SITTING IN BED, DENIES ANY PAIN. STATES HE HAS TO USE URINAL. WE ARE COLLECTING HIS URINE AT THIS TIME FOR UDS AND UA. ON ASSESSEMENT, THE PATIENT DOES HAVE BILATERAL LEG WOUNDS, DRY AND SCABBED, NOT WEEPING AT THIS TIME. NO OTHER CONCERNS. CIWA IS 0 AT SHIFT CHANGE. WILL CONTINUE TO MONITOR.
[2022-06-10 19:23] VITALS: BP 108/65; PULSE 92; TEMP 99
[2022-06-11] VITALS (10 sets, daily range): BP systolic 121–171; BP diastolic 77–91; PULSE 81–107; TEMP 98–99.1
[2022-06-11 07:00] LABS: BASO # 0.1 K/mm3 (0.0-0.2); BASO % 1.3 % (0.0-2.0); EOS # 0.1 K/mm3 (0.0-0.7); EOS % 2.3 % (0.0-4.0); GRAN % 58.2 % (42.2-75.2); HEMATOCRIT 38.7 % (42.0-52.0); HEMOGLOBIN 13.5 g/dl (13.5-18.0); LYMPH # 1.2 K/mm3 (1.2-3.4); LYMPH % 23.5 % (20.0-51.0); MEAN CELL VOLUME 104 fl (80.0-100.0); MEAN CORPUSCULAR HEMOGLOBIN 36 pg (27-31); MEAN CORPUSCULAR HGB CONC 35 g/dl (33.0-37.0); MEAN PLATELET VOLUME 9.5 fl (7.4-10.4); MONO # 0.8 K/mm3 (0.1-0.6); MONO % 14.5 % (1.7-9.3); PLATELET COUNT 103 K/mm3 (130-400); RED BLOOD COUNT 3.73 M/mm3 (4.20-5.60); REDCELL DISTRIBUTION WIDTH-CV 13.3 % (11.5-14.5)
[2022-06-11 07:07] LABS: CREATININE, serum 0.54 mg/dL (0.72-1.25); POTASSIUM 3.4 mmol/L (3.5-4.5)
[2022-06-11 07:09] LABS: COLLECTION METHOD CLEAN CATCH
[2022-06-11 07:22] LABS: SQUAMOUS EPITHELIAL None Seen /hpf (0-10); URINE BACTERIA None Seen /hpf (NONE SEEN); URINE RBC None Seen /hpf (0-2)
[2022-06-11 07:24] LABS: URINE APPEARANCE Clear (CLEAR/HAZY); URINE COLOR Yellow (YELLOW)
[2022-06-11 07:25] LABS: URINE BLOOD Negative (NEGATIVE); URINE GLUCOSE Negative (NEGATIVE); URINE KETONE Negative (NEGATIVE); URINE NITRATE Negative (NEGATIVE); URINE PROTEIN(semi-quant) Negative (NEGATIVE); URINE UROBILINOGEN 0.2 E.U/dL (0.2-1.0)
[2022-06-11 07:26] LABS: TRICYCLIC ANTIDEPRESS URINE NEGATIVE
--- NOTE | 2022-06-11 12:53 | NUR ---
SHIFT ASSESSMENT COMPLETED AND MORNING MEDICATIONS ADMINISTERED. ALERT AND ORIENTED X4. LUNGS CTA. CIWA AT 1. IV TO RIGHT FOREARM INTACT, NO C/O DISCOMFORT FROM PATIENT. FAMILY UPDATED REGARDING CONDITION. DENIES PAIN. DENIES NEEDS AT THIS TIME. CALL LIGHT WITHIN REACH, BED IN LOWEST, LOCKED POSITION.
--- NOTE | 2022-06-11 13:55 | NUR ---
Rola: No uatsdin preference Situation: research project coordinator stopped by room on rounds Background: Pt was resting and content Assessment: Pt has no needs right now. Pt appreciated the visit Recommendation: research project coordinator will follow up as needed
--- NOTE | 2022-06-11 15:01 | NUR ---
Personnel Interviewer met with patient to discuss discharge planning. Patient lives alone in [place] and reports his daughter, Frida (ph#[phone]) lives outside of [place]. Patient sees Dr. Rollins for primary care and obtains medications from [facility]. 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 Patient has a walker and shower chair at home. Patient reports independence wt ADLS. PT/OT ordered for patient. DPOA-HC is in EMR and designates his daughter, Frida as primary agent. SW addressed patient's alcohol use. Patient reports he drinks daily and has about six beers a day, depending on the day. SW discussed inpatient treatment and at first patient states he will "have to think about it". Patient states he has been to treatment before in [place] and tried to go again about six months ago, but it wasn't for him so he changed his mind and did not admit. SW advised patient that his family is interested in him going to intpatient treatment, but that ultimately it's his decision and he has to be agreeable in order for SW to secure placement for him. Patient verbalized understanding and stated his PCP, Dr. Rollins has also been trying to convince him to go to rehab but he is not interested in going at this time. SW advised patient he may be medically ready for discharge tomorrow. Patient stated his daughter was hoping he would be here longer but he stated he told her if he is ready for discharge, he wants to go home. SW discussed outpatient resources like AA and counseling. Patient states he is supposed to go to AA, but doesn't. Patient also reported he was seen a couple times at [facility] in the past but that it's been a long time. SW offered to give referral for outpatient counseling but patient politely declined. SW provided Drug/Alcohol and Mental Health Resource Guide to patient. SW contacted patient's daughter, Frida to review discharge plan. ROSA advised Frida that ROSA is happy to help arrange inpatient or outpatient if patient is agreeable, however patient was not open to either service today. Frida inquired about how to make an APS report so ROSA offered support in how to go about this. Frida to visit patient later and is hopeful she can convince him to go to inpatient treatment. Frida stated that maybe if it is framed in a more positive way, instead of "rehab" he would be more agreeable. ROSA spoke with Frida after her visit with patient. Frida stated the conversation did not go well and he asked her to leave. Frida advised patient may be open to [facility] again but fears he won't follow through with this. ROSA advised Frida that SW will follow up again tomorrow and could possibly discuss Home Health services again if patient is open to it. Discharge Plan: Home
--- NOTE | 2022-06-11 18:11 | NUR ---
PATIENT UP IN BED EATING EVENING MEAL. ALERT AND ORIENTED. CIWA CONTINUES TO SCORE 1-2. MOSTLY INDEPENDENT WITH ADLS. DENIES NEEDS AT THIS TIME. CALL LIGHT WITHIN REACH.
--- NOTE | 2022-06-11 19:08 | NUR ---
Pt laying in bed at this time. Denies any needs. Will continue to monitor Q2H.
[2022-06-12] VITALS (13 sets, daily range): BP systolic 115–177; BP diastolic 79–108; PULSE 85–123; TEMP 97.6–98.3
--- NOTE | 2022-06-12 10:38 | NUR ---
SHIFT ASSESSMENT COMPLETED AND MORNING MEDICATIONS ADMINISTERED. ALERT AND ORIENTED X2. AT 0659, PATIENT NOTED TO GET OUT OF BED AND FALL ON FLOOR. SUPERVISOR TREE [employer]ARMING IN ROOM AT TIME OF FALL AND WITNESSED PATIENT FALL, PATIENT DID NOT HIT HIS HEAD. POST FALL VS WNL FOR PATIENT. PATIENT WITH MULTIPLE DRY SCABS TO BUE AND BLE, SCAB TO LEFT ARM AND LEFT LOWER LEG NOTED TO OPEN POST FALL WITH MINIMAL BLEEDING NOTED, BANDAID APPLIED. CIWA SCORE IS BETWEEN 7-10. ATIVAN GIVEN PER ORDER. PA UPDATED REGARDING FALL AND INCREASED CIWA SCORE, NEW ORDER FOR VALIUM RECIEVED AND GIVEN PER ORDER. PATIENT CONTINUING TO HAVE TACTILE HALLUCINATIONS, NEEDING FREQUENT REORIENTING, AND CLOSE MONITORING. FALL PRECAUTIONS IN PLACE, HOWEVER, PATIENT CONTINUES TO REMOVE HIS GOWN AND SOCKS WHEN STAFF PLACE THEM ON. PATIENT GIVEN PO POTASSIUM, WHICH HE TOLERATED WELL UNTIL THE LAST SIP, WHICH HE ASPIRATED ON. PATIENT COUGHING AND ABLE TO CLEAR SECRETIONS. HR ELEVATED, O2 NOTED TO BE AT 88% ON RA, O2 APPLIED. FOLLOWING APPLICATION OF O2 AT 3L, O2 SATURATION INCREASED TO 93%. DR. SALMON NOTIFIED OF INCREASED HR, NEED FOR SUPPLEMENTAL O2, AND ASPIRATION. WILL CONTINUE TO MONITOR PATIENT AND ADMINISTER ATIVAN PER ORDER. PATIENT IN BED AT THIS TIME, BED IN LOWEST, LOCKED POSITION, CALL LIGHT WITHIN REACH, BED ALARM ON, SUPERVISOR [employer]ING IN ROOM WITH PATIENT.
--- NOTE | 2022-06-12 16:37 | NUR ---
PO VALIUM GIVEN PER ORDER. MEDICATION CRUSHED AND GIVEN IN APPLESAUCE, PATIENT TOLERATED WELL WITH NO COUGHING NOTED. HOB ELEVATED DURING MEDICATION ADMINISTRATION AND 30 MINUTES AFTER ADMINISTRATION.
--- NOTE | 2022-06-12 18:30 | NUR ---
PATIENT HERE FOR ETOH DETOX. CONTINUES WITH CIWA SCORE RANGING BETWEEN 8-10. PRN ATIVAN GIVEN Q2 PER ORDER. VALIUM STARTED THIS MORNING, TOLERATING WELL. PT GIVEN PO MEDS THIS EVENING CRUSHED IN APPLESAUCE, TOLERATING WELL, NO COUGH NOTED. PATIENT WITH NO URINARY OUTPUT THIS SHIFT, BLADDER SCAN PERFORMED WHICH REVEALED OVER 550ML. NEW ORDER FOR NESBITT CATHETER OBTAINED, WHEN ATTEMPTING TO INSERT NESBITT CATHETER, PATIENT BEGAN URINATING. LARGE AMOUNT OF NICOLE URINE NOTED. PA UPDATED REGARDING VOID, WILL HOLD NESBITT INSERTION FOR NOW. PT IN BED AT THIS TIME, CALL LIGHT WITHIN REACH, BED ALARM ON.
--- NOTE | 2022-06-12 18:44 | NUR ---
NOTED THAT PT HAD NOT URINATED DURING SHIFT TODAY, PT BLADDER SCANNED AND FOUND WITH >576 IN BLADDER. ASTRID OBTAINED TO PLACE A NESBITT CATHETER. WHILE PREPARING TO INSERT PT URINATED A LARGE AMOUNT. NESBITT NOT PLACED AT THIS TIME. WILL CONTINUE TO MONITOR.
--- NOTE | 2022-06-12 21:02 | NUR ---
ATIVAN GIVEN AT THIS TIME
[2022-06-13] VITALS (14 sets, daily range): BP systolic 107–157; BP diastolic 67–89; PULSE 91–116; TEMP 97.5–98.7
--- NOTE | 2022-06-13 10:45 | NUR ---
PT RESTING IN BED. MORNING MEDICATIONS GIVEN BY STUDENT NURSEANEL. SHIFT ASSESSMENT COMPLETED. PT CURRENTLY BREATHING 2L VIA NC. CAN ANSWER SOME QUESTIONS APPROPRIATELY, PT VERY DROWSY AND DISORIENTED. BED ALARMS IN PLACE. CONTINUING TO MONITOR.
--- NOTE | 2022-06-13 13:52 | NUR ---
Primary nurse was assisted with [phone] patient care by [employer] student Magdalena Zaman and [employer] instructor Annie DUMAS RN.
--- NOTE | 2022-06-13 22:50 | NUR ---
Patient assessed around 1939. Patient continues on detox protocol per orders, and receiving PRN Ativan per orders. Continues on Valium taper as well. Patient confused, bed jumping, staff assists and redirects. High fall risk precautions in place. In bed with call light within reach. Bed alarm on.
[2022-06-14] VITALS (9 sets, daily range): BP systolic 102–155; BP diastolic 62–90; PULSE 83–97; TEMP 97.3–98.6
--- NOTE | 2022-06-14 06:07 | NUR ---
Patient recieved PRN Ativan and scheduled Valium per orders for detox. At beginning of shift, patient scoring 4-5 on detox protocol, getting out of bed, and needing constant reminders of where he is and why he his here. Has not needed any PRN Ativan since midnight. Currently scoring a 1. In bed with call light within reach. High fall risk precautions in place. Bed alarm on.
[2022-06-14 06:56] LABS: BASO # 0.1 K/mm3 (0.0-0.2); BASO % 0.7 % (0.0-2.0); EOS # 0.2 K/mm3 (0.0-0.7); EOS % 3.5 % (0.0-4.0); GRAN # 4.2 K/mm3 (1.4-6.5); GRAN % 62.2 % (42.2-75.2); HEMOGLOBIN 13.7 g/dl (13.5-18.0); LYMPH # 1.4 K/mm3 (1.2-3.4); LYMPH % 20.5 % (20.0-51.0); MEAN CELL VOLUME 107 fl (80.0-100.0); MEAN CORPUSCULAR HEMOGLOBIN 39 pg (27-31); MEAN CORPUSCULAR HGB CONC 36 g/dl (33.0-37.0); MEAN PLATELET VOLUME 10.8 fl (7.4-10.4); MONO # 0.9 K/mm3 (0.1-0.6); PLATELET COUNT 103 K/mm3 (130-400); RED BLOOD COUNT 3.55 M/mm3 (4.20-5.60)
[2022-06-14 07:07] LABS: ALBUMIN 3.3 gm/dL (3.4-4.8); CALCIUM 9.3 mg/dL (8.4-10.2); CREATININE, serum 0.55 mg/dL (0.72-1.25); PHOSPHOROUS 4.2 mg/dL (2.3-4.7); POTASSIUM 3.3 mmol/L (3.5-4.5)
--- NOTE | 2022-06-14 09:35 | NUR ---
SHIFT ASSESSMENT COMPLETED AND MEDICATIONS ADMINISTERED PER ORDER. ALERT AND ORIENTED X4. LUNGS CTA. MINIMAL TREMORS NOTED. IV TO RIGHT FOREARM NOTED TO INFILTRATE DURING POTASSIUM INFUSION. INFUSION STOPPED, AREA ELEVATED, ICE APPLIED, AND PRN APAP GIVEN FOR REPORTS OF PAIN OF 7-8/10 TO AREA. DENIES ANY NEEDS AT THIS TIME. STATES HE IS DEBATING WHETHER OR NOT HE WANTS TO GO TO REHAB FOR ALCHOLISM. CALL LIGHT WITHIN REACH, BED IN LOWEST, LOCKED POSITION, SEIZURE PRECAUTIONS AND FALL PRECAUTIONS IN PLACE.
--- NOTE | 2022-06-14 10:44 | NUR ---
PATIENT NOTED WITH BP 75/52, HR 94 [address] SOME [address] SALMON UPDATED, NEW ORDER RECIEVED FOR 500ML BOLUS NOW. IVF ADMINISTERED PER ORDER. CURRENT BLOOD PRESSURES ARE 110S/50S.
--- NOTE | 2022-06-14 13:49 | NUR ---
Primary nurse was assisted with [phone] patient care by [employer] student Magdalena Zaman and [employer] instructor Annie DUMAS RN.
--- NOTE | 2022-06-14 16:07 | NUR ---
PT is now recommending post acute rehab for patient. SW contacted Татьяна, IPR Director and gave referral. SW met with patient who would be agreeable to IPR but is still questionable on alcohol rehab. SW contacted patient's daughter, Frida and gave update.
--- NOTE | 2022-06-14 18:48 | NUR ---
PATIENT HAS HAD AN UNEVENTFUL DAY. CIWA HAS CONTINUED TO SCORE BETWEEN 0-1. NO NEED FOR PRN ATIVAN THIS SHIFT. PT WITH NO MORE HYPOTENSIVE EPISODES THIS SHIFT. TOLERATED IV POTASSIUM WELL. DENIES PAIN AT THIS TIME. UP IN BED WATCHING TV, DENIES ANY NEEDS. CALL LIGHT WITHIN REACH, BED IN LOWEST, LOCKED POSITION, BED ALARM ON.
--- NOTE | 2022-06-14 20:00 | NUR ---
Pt lying down in bed, and watching TV. Requests ice cream before going to sleep. A&O x4 at this moment. Left Upper Arm INT CDI. Right Hand INT CDI. CIWA protocol score of 2. Pt ambulating to the bathroom to void, with assistance. Pt understands use of call light at this moment. Pt remains under fall risk precautions and seizure precautions. Will continue monitoring. Several bruises all over upper and lower extremities. Call light within reach
[2022-06-15] VITALS (11 sets, daily range): BP systolic 98–132; BP diastolic 54–79; PULSE 73–108; TEMP 97.3–98.7
[2022-06-15 06:52] LABS: BASO % 0.6 % (0.0-2.0); EOS # 0.2 K/mm3 (0.0-0.7); EOS % 3.6 % (0.0-4.0); GRAN # 3.7 K/mm3 (1.4-6.5); LYMPH # 1.6 K/mm3 (1.2-3.4); LYMPH % 23.5 % (20.0-51.0); MEAN CELL VOLUME 107 fl (80.0-100.0); MEAN CORPUSCULAR HEMOGLOBIN 39 pg (27-31); MEAN CORPUSCULAR HGB CONC 36 g/dl (33.0-37.0); MEAN PLATELET VOLUME 10.7 fl (7.4-10.4); MONO # 1.1 K/mm3 (0.1-0.6); MONO % 17.1 % (1.7-9.3); PLATELET COUNT 148 K/mm3 (130-400); REDCELL DISTRIBUTION WIDTH-CV 13.1 % (11.5-14.5)
--- NOTE | 2022-06-15 06:54 | NUR ---
Pt was restless around 2300 to 0100. Ativan was administrated per CIWA protocol, with score of 4. After medication pt slept better. He ambulated to the bathroom twice and had a large amount voided. Between [id number] CIWA was scoring 1-2. Call light within reach.
[2022-06-15 06:57] LABS: HEMATOCRIT 33.1 % (42.0-52.0)
[2022-06-15 07:04] LABS: CALCIUM 8.9 mg/dL (8.4-10.2); CREATININE, serum 0.55 mg/dL (0.72-1.25); MAGNESIUM 1.8 mg/dL (1.6-2.6); PHOSPHOROUS 3.8 mg/dL (2.3-4.7); POTASSIUM 3.3 mmol/L (3.5-4.5)
--- NOTE | 2022-06-15 08:53 | NUR ---
Patient is resting in bed, alert and oriented x 4, VSS. States he did not sleep well at night. Right now sleeping and getting awake when calling him. Assessment completed, meds provided. No other needs at this time. Call light within reach.
--- NOTE | 2022-06-15 08:58 | NUR ---
Patient is resting in bed, alert and oriented, took all his meds. Seems tired and come back to sleep easily. Assessment completed, no other needs at ths time.
--- NOTE | 2022-06-15 19:03 | NUR ---
Patient has been stable along the day, he had a couple of CIWA of 2, eating well, VSS. He got K+ replacement. Report given to night nurse.
--- NOTE | 2022-06-15 20:00 | NUR ---
Shift assessment completed. CIWA score of 1. Pt is A&O x3. VSS. Left forearm INT CDI. He ambulated to the bathroom with assistance a couple times and he is having difficulty voiding. No telemetry box. Medications administrated with apple sauce. Pt remains in swallowing precautions, seizure precautions and fall risk precautions. Call light within reach.
[2022-06-16] VITALS (10 sets, daily range): BP systolic 110–147; BP diastolic 66–85; PULSE 81–114; TEMP 97.5–99.3
--- NOTE | 2022-06-16 04:25 | NUR ---
Pt was restless around same time as previous night. Encouraged him to void. After voiding a large amount, pt felt better. Although he started having hallucinations and tried to walk around the room and picking table worker stuff from the floor. CIWA was scoring 4, Ativan was administrated, and pt slept better after. Call light is within reach. Although, pt forgets limitations and needs constant reminders about using his call light.
[2022-06-16 06:54] LABS: HEMOGLOBIN 11.8 g/dl (13.5-18.0); MEAN CELL VOLUME 107 fl (80.0-100.0); MEAN CORPUSCULAR HEMOGLOBIN 37 pg (27-31); MEAN CORPUSCULAR HGB CONC 34 g/dl (33.0-37.0); MEAN PLATELET VOLUME 10.3 fl (7.4-10.4); PLATELET COUNT 166 K/mm3 (130-400); RED BLOOD COUNT 3.22 M/mm3 (4.20-5.60); REDCELL DISTRIBUTION WIDTH-CV 12.8 % (11.5-14.5)
[2022-06-16 07:01] LABS: HEMATOCRIT 34.3 % (42.0-52.0)
[2022-06-16 07:08] LABS: ALBUMIN 2.9 gm/dL (3.4-4.8); CREATININE, serum 0.57 mg/dL (0.72-1.25); MAGNESIUM 1.8 mg/dL (1.6-2.6); PHOSPHOROUS 4.2 mg/dL (2.3-4.7); POTASSIUM 3.7 mmol/L (3.5-4.5)
[2022-06-16 07:27] LABS: BAND 4 % (0-10); BASOPHIL 1 % (0-2); EOSINOPHIL 3 % (0-4); LYMPHOCYTE 33 % (20.0-51.0); NEUTROPHILS 41 % (42.0-75.2); PLATELET ESTIMATE NORMAL (NORMAL)
--- NOTE | 2022-06-16 08:50 | NUR ---
Patient is resting in bed, assisted to the restroom, weak to walk but fine assisted by 1. Alert and oriented x3. Having his breakfast now. Assessment completed, meds provided. No other needs at this time. Call light within reach.
--- NOTE | 2022-06-16 18:34 | NUR ---
Patient has been stable along the day, walking with PT, eating well, no tremors, scoring 2 on CIWA r/t heart rate 100-115. Potassium was replaced per protocol. Aware of IPR screening. Report will be given to night RN.
--- NOTE | 2022-06-16 20:00 | NUR ---
Pt in bed. Shift assessment completed. A&O x4. Pt looks more aware and asking questions about his meeting with the social studies teacher on Friday. Left FA INT CDI. No tele. All medications administered per Emar. Fall risk precautions and seizure precautions remain in place. Pt remains in CIWA protocol. Call light is within reach.
[2022-06-17] VITALS (8 sets, daily range): BP systolic 106–137; BP diastolic 58–85; PULSE 52–102; TEMP 97.5–98.6
--- NOTE | 2022-06-17 06:27 | NUR ---
Uneventful night. Pt requested assistance to use the restroom twice during the night. CIWA score between 0-2. No Ativan was administrated. Call light is within reach.
[2022-06-17 06:31] LABS: HEMOGLOBIN 11.9 g/dl (13.5-18.0); MEAN CELL VOLUME 106 fl (80.0-100.0); MEAN CORPUSCULAR HEMOGLOBIN 37 pg (27-31); MEAN CORPUSCULAR HGB CONC 34 g/dl (33.0-37.0); MEAN PLATELET VOLUME 9.7 fl (7.4-10.4); PLATELET COUNT 212 K/mm3 (130-400); RED BLOOD COUNT 3.26 M/mm3 (4.20-5.60); REDCELL DISTRIBUTION WIDTH-CV 12.7 % (11.5-14.5)
[2022-06-17 06:35] LABS: HEMATOCRIT 34.6 % (42.0-52.0)
[2022-06-17 06:55] LABS: BAND 4 % (0-10); CREATININE, serum 0.62 mg/dL (0.72-1.25); EOSINOPHIL 4 % (0-4); LYMPHOCYTE 27 % (20.0-51.0); MAGNESIUM 1.7 mg/dL (1.6-2.6); NEUTROPHILS 47 % (42.0-75.2); PHOSPHOROUS 4.3 mg/dL (2.3-4.7); PLATELET ESTIMATE NORMAL (NORMAL); POTASSIUM 3.7 mmol/L (3.5-4.5)
--- NOTE | 2022-06-17 10:17 | NUR ---
SHIFT ASSESSMENT COMPLETED AND MORNING MEDICATIONS ADMINISTERED PER ORDER. ALERT AND ORIENTED X4. DENIES ANY PAIN. LUNGS CTA. NEURO CHECKS WNL. CIWA SCORE CURRENTLY 0. ON POTASSIUM PROTOCOL, CURRENTLY RECIEVING IV POTASSIUM. IV TO LEFT WRIST INTACT, NO SIGNS OF INFILTRATION OR PHELBITIS. DENIES NEEDS AT THIS TIME. FALL PRECAUTIONS IN PLACE. CALL LIGHT WITHIN REACH. CHAIR ALARM ON.
--- NOTE | 2022-06-17 12:40 | NUR ---
Speech therapy worked with patient and advised this RN that patient could be advanced to thin liquids.
[2022-06-17] MEDS ORDERED: SEROQUEL50 MG PO (13:31)
[2022-06-17] MEDS ORDERED: FOLIC ACID 11 MG/TA1 PO (13:32)
[2022-06-17] MEDS ORDERED: THIAMINE 1100 MG/TAB PO (14:05)
--- NOTE | 2022-06-17 15:43 | NUR ---
Pals Specialist was notified by [facility] that he is too functional for them to accept. ROSA met with patient to review discharge plan. SW asked patient if he was open to inpatient alcohol treatment and patient stated he wanted to go home and think about it. ROSA provided list of local AA meetings, per daughter's request. Patient is open to Home Health services and would like to use [facility] as he has worked with them in the past. ROSA contacted patient's daughter, Frida and provided update and offered support. ROSA then contacted Duncan at [facility] and faxed referral with orders. Patient is accepted. Discharge Plan: [facility]
--- NOTE | 2022-06-17 16:28 | NUR ---
DISCHARGE TEACHING PROVIDED TO PATIENT WITH DAUGHTER AT BEDSIDE. REVIEWED MEDICATIONS WITH PATIENT. PER DAUGHTER, SHE IS CONCERNED ABOUT PATIENT CONTINUING TO TAKE SEROQUEL AT HOME D/T HIS CHRONIC ALCOHOL USE. DR. MOORE CONTACTED, PER DR. MOORE, PATIENT CAN D/C SEROQUEL AND DOES NOT NEED TO TAKE THIS MEDICATION AT HOME. DAUGHTER AND PATIENT VERBALIZED UNDERSTANDING. DENIES ANY OTHER QUESTIONS OR CONCERNS AT THIS TIME. IV REMOVED WITH CATH INTACT. PT ESCORTED OUT BY VIA [facility] [place] STAFF.
== END 2022-06-17 16:15 | disposition home health service (06) | DRG 897 ==
LOC: MEDICAL 14:14
PROVIDERS: Internal Medicine; Physician Assistant; ADMIT Internal Medicine
DX: F10.239 Alcohol dependence with withdrawal, unspecified (principal); E87.1 Hypo-osmolality and hyponatremia; L03.116 Cellulitis of left lower limb; F10.24 Alcohol dependence with alcohol-induced mood disorder; F10.221 Alcohol dependence with intoxication delirium; K76.0 Fatty (change of) liver, not elsewhere classified; F32.A Depression, unspecified; I10 Essential (primary) hypertension; J43.9 Emphysema, unspecified; R21 Rash and other nonspecific skin eruption; F17.210 Nicotine dependence, cigarettes, uncomplicated; D69.6 Thrombocytopenia, unspecified; I95.9 Hypotension, unspecified; Z23 Encounter for immunization
CPT/HCPCS: J2060; J3480; J7030; J7040